=== PATIENT | female | born 1935 ===

== ENCOUNTER 2018-12-12 09:32 | Inpatient (IN) | payer OTHER ==
[2018-12-12 09:41] VITALS: BMI 27.9
[2018-12-12 11:09] LABS: BASO % 0.6 % (0.0-2.0); EOS # 0.2 K/uL (0.0-0.7); HEMOGLOBIN 7.4 g/dL (12.0-16.0); LYMPH # 1.2 K/uL (1.0-4.3); MEAN CELL VOLUME 61.4 fl (81.0-99.0); MEAN CORPUSCULAR HEMOGLOBIN 18.9 pg (27.0-31.0); MEAN CORPUSCULAR HGB CONC 30.8 g/dL (33.0-37.0); MEAN PLATELET VOLUME 6.8 fl (7.2-11.7); MONO # 0.5 K/uL (0.0-0.8); MONO % 9.3 % (0.0-10.0); NEUT # 3.4 K/uL (1.8-7.0); NEUT % 64.1 % (50.0-75.0); NRBC % 0.1 % (0.0-0.0); RBC 3.89 Mil/uL (3.80-5.20); RED CELL DISTRIBUTION WIDTH 18.5 % (11.5-14.5); WHITE BLOOD COUNT 5.3 K/uL (4.8-10.8)
[2018-12-12 11:22] LABS: ALBUMIN 3.1 g/dL (3.5-5.0); ALT/SGPT 32 U/L (9-52); AST/SGOT 39 U/L (14-36); BLOOD UREA NITROGEN 9 mg/dl (7-17); CALCIUM 8.1 mg/dL (8.4-10.2); GFR NON-AFRICAN AMERICAN > 60
--- NOTE | 2018-12-12 11:37 | ED PDOC ---
Syncope/Near Syncope/Dizziness Chief Complaint (Provider): Dizziness/Lightheaded History Per: Patient, Family History/Exam Limitations: no limitations Onset/Duration Of Symptoms: Days Current Symptoms Are (Timing): Still Present Additional Complaint(s): 82 year old female with a past medical history of hypertension who is presenting to the ED for evaluation of headaches, dizziness, and weakness worsening over the last 3 days. Daughter states that patient has fallen twice trying to get out of bed but states that she had no injury or loss of consciousness. Patient denies any nausea or vomiting and is not favoring 1 side. She remains alert and baseline oriented. Of note, patient is in Lisinopril but didnt take her medication today. PMD: none provided <Cici Vizcaino - Last Filed: 12/12/18 15:10> <Salinas Kumar III - Last Filed: 12/12/18 15:19> Time Seen by Provider: 12/12/18 10:17 Chief Complaint (Nursing): Dizziness/Lightheaded Past Medical History Reviewed: Historical Data, Nursing Documentation, Vital Signs Vital Signs: Last Vital Signs Temp 97.6 F 12/12/18 09:41 Pulse 70 12/12/18 09:41 Resp 15 12/12/18 09:41 BP 143/79 12/12/18 09:41 Pulse Ox 100 12/12/18 09:41 - Medical History PMH: HTN - Surgical History Other surgeries: Foot surgery - Family History Family History: States: Unknown Family Hx - Social History Current smoker - smoking cessation education provided: No Alcohol: None Drugs: Denies - Immunization History Hx Tetanus Toxoid Vaccination: No Hx Influenza Vaccination: No Hx Pneumococcal Vaccination: No <Cici Vizcaino - Last Filed: 12/12/18 15:10> Vital Signs: Last Vital Signs Temp 97.8 F 12/12/18 12:50 Pulse 63 12/12/18 12:50 Resp 13 12/12/18 12:50 BP 140/70 12/12/18 12:50 Pulse Ox 100 12/12/18 15:10 <Salinas Kumar III - Last Filed: 12/12/18 15:19> - Home Medications Home Medications: Ambulatory Orders Medication Instructions Recorded Lisinopril [Zestril] 20 mg PO DAILY 12/12/18 - Allergies Allergies/Adverse Reactions: Allergies Allergy/AdvReac Type Severity Reaction Status Date / Time No Known Allergies Allergy Verified 12/12/18 10:30 Review of Systems ROS Statement: Except As Marked, All Systems Reviewed And Found Negative Constitutional: Positive for: Other Gastrointestinal: Negative for: Nausea, Vomiting Neurological: Positive for: Weakness, Headache, Dizziness. Negative for: Other (LOC) <Cici Vizcaino - Last Filed: 12/12/18 15:10> Physical Exam - Reviewed Nursing Documentation Reviewed: Yes Vital Signs Reviewed: Yes - Physical Exam Appears: Positive for: Non-toxic, No Acute Distress Head Exam: Positive for: ATRAUMATIC, NORMAL INSPECTION, NORMOCEPHALIC Skin: Positive for: Normal Color, Warm, DRY Eye Exam: Positive for: EOMI, Normal appearance, PERRL Neck: Positive for: Normal, Painless ROM, Supple Cardiovascular/Chest: Positive for: Regular Rate, Rhythm. Negative for: Murmur Respiratory: Positive for: Normal Breath Sounds. Negative for: Respiratory Distress Gastrointestinal/Abdominal: Positive for: Normal Exam, Soft. Negative for: Tenderness Extremity: Positive for: Normal ROM. Negative for: Deformity, Swelling Neurological/Psych: Positive for: Awake, Alert, Normal Tone, Oriented (Oriented to day and month, but thinks its 2018. She knows her own date of ). Negative for: Motor/Sensory Deficits <Cici Vizcaino - Last Filed: 12/12/18 15:10> - Laboratory Results Result Diagrams: 12/12/18 11:03 12/12/18 11:03 Lab Results: Total Bilirubin 0.5 mg/dl (0.2-1.3) 12/12/18 11:03 AST 39 U/L (14-36) H 12/12/18 11:03 ALT 32 U/L (9-52) 12/12/18 11:03 Alkaline Phosphatase 103 U/L (38-126) 12/12/18 11:03 Total Protein 6.2 G/DL (6.3-8.2) L 12/12/18 11:03 Albumin 3.1 g/dL (3.5-5.0) L 12/12/18 11:03 Globulin 3.0 gm/dL (2.2-3.9) 12/12/18 11:03 Albumin/Globulin Ratio 1.0 (1.0-2.1) 12/12/18 11:03 - ECG O2 Sat by Pulse Oximetry: 100 (RA) Pulse Ox Interpretation: Normal <CarrilloCici J - Last Filed: 12/12/18 15:10> - Laboratory Results Result Diagrams: 12/12/18 11:03 12/12/18 11:03 Lab Results: Troponin I < 0.0120 ng/mL (0.00-0.120) 12/12/18 11:03 Total Bilirubin 0.5 mg/dl (0.2-1.3) 12/12/18 11:03 AST 39 U/L (14-36) H 12/12/18 11:03 ALT 32 U/L (9-52) 12/12/18 11:03 Alkaline Phosphatase 103 U/L (38-126) 12/12/18 11:03 Total Protein 6.2 G/DL (6.3-8.2) L 12/12/18 11:03 Albumin 3.1 g/dL (3.5-5.0) L 12/12/18 11:03 Globulin 3.0 gm/dL (2.2-3.9) 12/12/18 11:03 Albumin/Globulin Ratio 1.0 (1.0-2.1) 12/12/18 11:03 Urine Color Yellow (YELLOW) 12/12/18 11:11 Urine Clarity Slighty-cloudy (Clear) 12/12/18 11:11 Urine pH 7.0 (5.0-8.0) 12/12/18 11:11 Ur Specific [place] 1.013 (1.003-1.030) 12/12/18 11:11 Urine Protein Negative mg/dL (NEGATIVE) 12/12/18 11:11 Urine Glucose (UA) Neg mg/dL (NEGATIVE) 12/12/18 11:11 Urine Ketones Negative mg/dL (NEGATIVE) 12/12/18 11:11 Urine Blood Negative (NEGATIVE) 12/12/18 11:11 Urine Nitrate Negative (NEGATIVE) 12/12/18 11:11 Urine Bilirubin Negative (NEGATIVE) 12/12/18 11:11 Urine Urobilinogen 4.0 mg/dL (0.2-1.0) H 12/12/18 11:11 Ur Leukocyte Esterase Neg [place]/uL (Negative) 12/12/18 11:11 Urine Microscopic WBC 1 /hpf (0-5) 12/12/18 11:11 Ur Squamous Epith Cells 1 /hpf (0-5) 12/12/18 11:11 Amorphous Sediment Occ /ul (<OCC) H 12/12/18 11:11 <Salinas Kumar III - Last Filed: 12/12/18 15:19> Medical Decision Making Medical Decision Making: Time: 11:00 A/P: workup for worsening dizziness and headache --Labs including cardiac workup --CT Head --Reassess patient CT Head: FINDINGS: HEMORRHAGE: No gross intracranial hemorrhage seen. 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 There is ipsilateral sulcal effacement consistent with some mass effect.. No gross midline shift is appreciated at this time. Continued close surveillance is advised. Prior to completing this dictation, these findings were called in directly with the ER physician Dr. Vizcaino VENTRICLES: Unremarkable. No hydrocephalus. CALVARIUM: Unremarkable. PARANASAL SINUSES: Extensive ethmoidal sinus inflammatory changes are present. Concomitant maxillary sinus mucosal inflammatory changes are present these are more apparent on the left maxillary sinus probably due in part to the greater inclusion left maxillary sinuses. MASTOID AIR CELLS: Unremarkable as visualized. No inflammatory changes. Atherosclerotic vascular calcifications of the internal carotid arteries are noted. OTHER FINDINGS: IMPRESSION: Large right wedge-shaped hypodensity concerning for an acute subacute right middle cerebral artery vascular territory infarct no gross right middle cerebral artery hyperdense thrombus is appreciate on this exam. There is ipsilateral mass effect given the ipsilateral sulcal effacement. At this time no gross midline shift is appreciated-however close continued follow-up in this regard is needed. Consider MRI of the brain MRA of the brain for further evaluation As mentioned above, prior to completing this dictation these findings were called and directly with the ER physician Dr. Vizcaino. 14:[address] Velazquez who will see patient. He recommends 81 of aspirin and 300 of Plavix. Patient just returned from MRI/MRA with official read pending. She will be admitted under hospitalist, awaiting return call from Dr. Shah. 14:55 Provider explained to patient in-depth with spanish medical interpreter risk of leaving, including continued brain bleed, impaired brain function and . She states "we are all going to ." Despite daughter pleading with her to stay she still wants to leave. Attempting to contact Dr. Boland to asses mental capabilities of patient. 15:[address] Boland who states she will discuses case with Dr. Rodriges and one of the doctors will come see patient urgently. Patient pending evaluation to sign out AMA vs admission. Scribe Attestation: Documented by Bridget Arce, acting as a scribe for Cici Vizcaino MD. Provider Scribe Attestation: All medical record entries made by the Scribe were at my direction and personally dictated by me. I have reviewed the chart and agree that the record accurately reflects my personal performance of the history, physical exam, medi aldo decision making, and the department course for this patient. I have also personally directed, reviewed, and agree with the discharge instructions and disposition. <Cici Vizcaino - Last Filed: 12/12/18 15:10> Medical Decision Making: psychiatry attending Dr Boland saw patient, patient cannot retain information and partially oriented, does not have capacity to sign AMA. Hospitalist aware. <Salinas Kumar III - Last Filed: 12/12/18 15:19>
[2018-12-12 11:47] LABS: SQUAMOUS EPITHIAL 1 /hpf (0-5); URINE AMORPHOUS SEDIMENT OCC /ul (<OCC); URINE BILIRUBIN NEGATIVE (NEGATIVE); URINE BLOOD NEGATIVE (NEGATIVE); URINE CLARITY SLIGHTY-CLOUDY (Clear); URINE COLOR YELLOW (YELLOW); URINE GLUCOSE (UA) NEG (NEGATIVE); URINE LEUKOCYTE ESTERASE NEG Leu/uL (Negative); URINE PROTEIN NEGATIVE (NEGATIVE)
--- NOTE | 2018-12-12 11:51 | CT ---
Date of service: 12/12/2018 PROCEDURE: CT HEAD WITHOUT CONTRAST. HISTORY: dizziness COMPARISON: None available. TECHNIQUE: Axial computed tomography images were obtained through the head/brain without intravenous contrast. Radiation dose: Total exam DLP = 701.95 mGy-cm. This CT exam was performed using one or more of the following dose reduction techniques: Automated exposure control, adjustment of the mA and/or kV according to patient size, and/or use of iterative reconstruction technique. FINDINGS: HEMORRHAGE: No gross intracranial hemorrhage seen. 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 There is ipsilateral sulcal effacement consistent with some mass effect.. No gross midline shift is appreciated at this time. Continued close surveillance is advised. Prior to completing this dictation, these findings were called in directly with the ER physician Dr. Vizcaino VENTRICLES: Unremarkable. No hydrocephalus. CALVARIUM: Unremarkable. PARANASAL SINUSES: Extensive ethmoidal sinus inflammatory changes are present. Concomitant maxillary sinus mucosal inflammatory changes are present these are more apparent on the left maxillary sinus probably due in part to the greater inclusion left maxillary sinuses. MASTOID AIR CELLS: Unremarkable as visualized. No inflammatory changes. Atherosclerotic vascular calcifications of the internal carotid arteries are noted. OTHER FINDINGS: IMPRESSION: Large right wedge-shaped hypodensity concerning for an acute subacute right middle cerebral artery vascular territory infarct no gross right middle cerebral artery hyperdense thrombus is appreciate on this exam. There is ipsilateral mass effect given the ipsilateral sulcal effacement. At this time no gross midline shift is appreciated-however close continued follow-up in this regard is needed. Consider MRI of the brain MRA of the brain for further evaluation As mentioned above, prior to completing this dictation these findings were called and directly with the ER physician Dr. Vizcaino.
--- NOTE | 2018-12-12 13:22 | RAD ---
Date of service: 12/12/2018 HISTORY: possible admission COMPARISON: No prior. TECHNIQUE: 1 view obtained. FINDINGS: LUNGS: Lung volumes borderline shallow No consolidation. Possible granuloma (versus bone island projecting over left mid lung zone. Approximately 4 to 5 mm in size. Chronicity unknown PLEURA: Pneumothorax. Probable small left pleural effusion. CARDIOVASCULAR: No aortic atherosclerotic calcification present. Mild cardiomegaly Minimal pulmonary venous congestion probable OSSEOUS STRUCTURES: No fracture or lytic lesion. Calcified granuloma or bone island or high-density lymph node projecting over the right thoracic inlet in posterior right 1st and 2nd ribs. VISUALIZED UPPER ABDOMEN: Normal. OTHER FINDINGS: None. IMPRESSION: Cardiomegaly probable trace left pleural effusion. Minimal pulmonary venous congestion probable No consolidations seen. Other findings as above.
[2018-12-12] MEDS ORDERED: Gadodiamide 287 MG/ML VIAL (15ML) IV ONE (13:36)
--- NOTE | 2018-12-12 14:52 | MRI ---
Date of service: 12/12/2018 PROCEDURE: MRI BRAIN WITH AND WITHOUT CONTRAST HISTORY: subacute infarct COMPARISON: CT head without contrast from 12/12/2018. TECHNIQUE: Multiplanar, multisequence MR images of the brain were obtained with and without intravenous contrast enhancement. 11 cc Omniscan was injected intravenously. FINDINGS: HEMORRHAGE: None DWI: There is a triangular wedge-shaped area of restricted diffusion in the right posterior parietal lobe. There is also a small focus of restricted diffusion in the right posterior parietal lobe. BRAIN PARENCHYMA: There are mild chronic microangiopathic changes. There is a chronic infarction in the right occipital lobe. There is no mass, mass effect or abnormal extra-axial fluid collection. The midline sagittal structures are normal. There is an empty sella. ENHANCEMENT: No abnormal intracranial enhancement. VENTRICLES: There is mild age-related global parenchymal volume loss and proportionate enlargement of the ventricles and cortical sulci. CRANIUM: There are normal signal voids in the larger intracranial arteries. ORBITS: Grossly unremarkable. PARANASAL SINUSES/MASTOIDS: There is moderate mucosal thickening in the paranasal sinuses and small mastoid effusions VASCULAR SYSTEM: There are normal signal voids in the larger intracranial arteries. OTHER FINDINGS: None . IMPRESSION: 1. Late acute/early subacute right MCA involving the right posterior parietal lobe. Additional small focus of acute infarction in the right posterior parietal lobe. 2. Mild chronic microangiopathic changes and mild age-related global parenchymal volume loss. 3. 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 4. Chronic pansinusitis.
--- NOTE | 2018-12-12 15:28 | CP.PCM.HP ---
<Jerman Giron - Last Filed: 12/12/18 16:49> History of Present Illness - History of Present Illness History of Present Illness: 82 year old female with a past medical history of hypertension presented to ED due to headache and dizziness that started 3 days ago. due to persistent symptom daughter brought her to hospital. As per [facility] patient fall twice already but no injury or LOC. Patient denies any symptoms as per now. PCP None Allergy None Medication: none PFH none PSH None Social denies smoke drink or drug use. ED course VItal 97.6temp , 143/79Bp 70Hr 100ox CBC/CMP wnl UA + for bacteria MRI Large right wedge-shaped hypodensity concerning for an acute subacute right middle cerebral artery vascular territory infarct no gross right middle cerebral artery hyperdense thrombus is appreciate on this exam. There is ipsilateral mass effect given the ipsilateral sulcal effacement. At this time no gross midline shift is appreciated-however close continued follow-up in this regard is needed. Consider MRI of the brain MRA of the brain for further evaluation Patient refusing all medication During interview patient is combative and want to be discharged home, she report God will cure her and she is refusing all medication. Psych was consulted and state patient is not compitent to make own discion. Patient will be admitted for treatment and management of CVA Present on Admission - Present on Admission Any Indicators Present on Admission: No Review of Systems - Review of Systems All systems: reviewed and no additional remarkable complaints except Past Patient History - Past Social History Alcohol: None Drugs: Denies - CARDIAC Hx Hypertension: Yes - PSYCHIATRIC Hx Substance Use: No - SURGICAL HISTORY Hx Surgeries: No Other/Comment: Foot surgery - ANESTHESIA Hx Anesthesia: Yes Hx Anesthesia Reactions: No Hx Malignant Hyperthermia: No Meds Allergies/Adverse Reactions: Allergies Allergy/AdvReac Type Severity Reaction Status Date / Time No Known Allergies Allergy Verified 12/12/18 10:30 Physical Exam - Constitutional Appears: Well, Non-toxic, No Acute Distress - Head Exam Head Exam: ATRAUMATIC, NORMAL INSPECTION, NORMOCEPHALIC - Eye Exam Eye Exam: EOMI, Normal appearance, PERRL Pupil Exam: NORMAL ACCOMODATION, PERRL - Respiratory Exam Respiratory Exam: Clear to Auscultation Bilateral, NORMAL BREATHING PATTERN - Cardiovascular Exam Cardiovascular Exam: REGULAR RHYTHM, +S1, +S2 - GI/Abdominal Exam GI & Abdominal Exam: Normal Bowel Sounds, Soft - Back Exam Back exam: NORMAL INSPECTION Additional comments: normal gate - Neurological Exam Neurological exam: Alert Additional comments: normal gaite, no weakness, no loss of sensation bl in all extremities - Skin Skin Exam: Dry, Intact, Normal Color, Warm Results - Vital Signs Recent Vital Signs: Last Vital Signs Temp 97.8 F 12/12/18 12:50 Pulse 63 12/12/18 12:50 Resp 13 12/12/18 12:50 BP 140/70 12/12/18 12:50 Pulse Ox 100 12/12/18 15:10 - Labs Result Diagrams: 12/12/18 11:03 12/12/18 11:03 Labs: Laboratory Results - last 24 hr 12/12/18 12/12/18 12/12/18 10:19 11:03 11:03 WBC 5.3 RBC 3.89 Hgb 7.4 L Hct 23.8 L MCV 61.4 L MCH 18.9 L MCHC 30.8 L RDW 18.5 H Plt Count 350 MPV 6.8 L Neut % (Auto) 64.1 Lymph % (Auto) 23.0 [place] % (Auto) 9.3 Eos % (Auto) 3.0 Baso % (Auto) 0.6 Neut # (Auto) 3.4 Lymph # (Auto) 1.2 [place] # (Auto) 0.5 Eos # (Auto) 0.2 Baso # (Auto) 0.0 Sodium 135 Potassium 3.9 Chloride 105 Carbon Dioxide 22 Anion Gap 12 BUN 9 Creatinine 0.5 L Est GFR ( Amer) > 60 Est GFR (Non-Af Amer) > 60 POC Glucose (mg/dL) 90 Random Glucose 89 Calcium 8.1 L Total Bilirubin 0.5 AST 39 H ALT 32 Alkaline Phosphatase 103 Troponin I < 0.0120 Total Protein 6.2 L Albumin 3.1 L Globulin 3.0 Albumin/Globulin Ratio 1.0 Urine Color Urine Clarity Urine pH Ur Specific [place] Urine Protein Urine Glucose (UA) Urine Ketones Urine Blood Urine Nitrate Urine Bilirubin Urine Urobilinogen Ur Leukocyte Esterase Urine Microscopic WBC Ur Squamous Epith Cells Amorphous Sediment 12/12/18 11:11 WBC RBC Hgb Hct MCV MCH MCHC RDW Plt Count MPV Neut % (Auto) Lymph % (Auto) [place] % (Auto) Eos % (Auto) Baso % (Auto) Neut # (Auto) Lymph # (Auto) [place] # (Auto) Eos # (Auto) Baso # (Auto) Sodium Potassium Chloride Carbon Dioxide Anion Gap BUN Creatinine Est GFR ( Amer) Est GFR (Non-Af Amer) POC Glucose (mg/dL) Random Glucose Calcium Total Bilirubin AST ALT Alkaline Phosphatase Troponin I Total Protein Albumin Globulin Albumin/Globulin Ratio Urine Color Yellow Urine Clarity Slighty-cloudy Urine pH 7.0 Ur Specific [place] 1.013 Urine Protein Negative Urine Glucose (UA) Neg Urine Ketones Negative Urine Blood Negative Urine Nitrate Negative Urine Bilirubin Negative Urine Urobilinogen 4.0 H Ur Leukocyte Esterase Neg Urine Microscopic WBC 1 Ur Squamous Epith Cells 1 Amorphous Sediment Occ H Assessment & Plan - Assessment and Plan (Free Text) Assessment: 82 year old female with a past medical history of hypertension presented to ED due to headache and dizziness that started 3 days ago. 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 There is ipsilateral mass effect given the ipsilateral sulcal effacement. At this time no gross midline shift is appreciated-however close continued follow-up in this regard is needed. Consider MRI of the brain MRA of the brain for further evaluation. 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 Patient refusing treatment Will give ativan 0.5 to be able to start her on treatment Plavix 300mg now Plavix 75mg tomorrow Aspirin 81mg po daily Lisinopril 20mg pantoprazole 40mg acetaminophen Oxygen follow up for exacerbation Neuro consult Psych consult F/u BMP F/U lipid panel F/U TSH Anemia H/H 7.4/23.8 Type and screen Cross and match F/U reticuloctye Diet Heart healthy diet DVT prophylaxis SCD FULL CODE <Manuel Shah D - Last Filed: 12/12/18 17:22> Results - Vital Signs Recent Vital Signs: Last Vital Signs Temp 97.8 F 12/12/18 12:50 Pulse 63 12/12/18 12:50 Resp 13 12/12/18 12:50 BP 140/70 12/12/18 12:50 Pulse Ox 100 12/12/18 15:10 - Labs Result Diagrams: 12/12/18 11:03 12/12/18 11:03 Labs: Laboratory Results - last 24 hr 12/12/18 12/12/18 12/12/18 10:19 11:03 11:03 WBC 5.3 RBC 3.89 Hgb 7.4 L Hct 23.8 L MCV 61.4 L MCH 18.9 L MCHC 30.8 L RDW 18.5 H Plt Count 350 MPV 6.8 L Neut % (Auto) 64.1 Lymph % (Auto) 23.0 [place] % (Auto) 9.3 Eos % (Auto) 3.0 Baso % (Auto) 0.6 Neut # (Auto) 3.4 Lymph # (Auto) 1.2 [place] # (Auto) 0.5 Eos # (Auto) 0.2 Baso # (Auto) 0.0 Sodium 135 Potassium 3.9 Chloride 105 Carbon Dioxide 22 Anion Gap 12 BUN 9 Creatinine 0.5 L Est GFR ( Amer) > 60 Est GFR (Non-Af Amer) > 60 POC Glucose (mg/dL) 90 Random Glucose 89 Calcium 8.1 L Total Bilirubin 0.5 AST 39 H ALT 32 Alkaline Phosphatase 103 Troponin I < 0.0120 Total Protein 6.2 L Albumin 3.1 L Globulin 3.0 Albumin/Globulin Ratio 1.0 Urine Color Urine Clarity Urine pH Ur Specific [place] Urine Protein Urine Glucose (UA) Urine Ketones Urine Blood Urine Nitrate Urine Bilirubin Urine Urobilinogen Ur Leukocyte Esterase Urine Microscopic WBC Ur Squamous Epith Cells Amorphous Sediment 12/12/18 11:11 WBC RBC Hgb Hct MCV MCH MCHC RDW Plt Count MPV Neut % (Auto) Lymph % (Auto) [place] % (Auto) Eos % (Auto) Baso % (Auto) Neut # (Auto) Lymph # (Auto) [place] # (Auto) Eos # (Auto) Baso # (Auto) Sodium Potassium Chloride Carbon Dioxide Anion Gap BUN Creatinine Est GFR ( Amer) Est GFR (Non-Af Amer) POC Glucose (mg/dL) Random Glucose Calcium Total Bilirubin AST ALT Alkaline Phosphatase Troponin I Total Protein Albumin Globulin Albumin/Globulin Ratio Urine Color Yellow Urine Clarity Slighty-cloudy Urine pH 7.0 Ur Specific [place] 1.013 Urine Protein Negative Urine Glucose (UA) Neg Urine Ketones Negative Urine Blood Negative Urine Nitrate Negative Urine Bilirubin Negative Urine Urobilinogen 4.0 H Ur Leukocyte Esterase Neg Urine Microscopic WBC 1 Ur Squamous Epith Cells 1 Amorphous Sediment Occ H Attending/Attestation - Attestation I have personally seen and examined this patient.: Yes I have fully participated in the care of the patient.: Yes I have reviewed all pertinent clinical information: Yes Notes (Text): 12/12/18 17:21 Patient seen and examined with resident. Case discussed and agreed with assessment and plan of management.
--- NOTE | 2018-12-12 15:37 | CP.PCM.CON ---
History of Present Illness - History of Present Illness History of Present Illness: consult requested for capacity to make decision 82 year old female with a past medical history of hypertension who is presenting to the ED for evaluation of headaches, dizziness, and weakness worsening over the last 3 days. as per daughter who is by bed side , pt has no previous psychiatric history or treatment and this is the first time for her to have an episode like that / mening act differently and to appear confused pt since last monday after coming from [facility] has been acting differently, she has been irritable, agitated, with poor sleep, dressing up differently , acting out of character and her speech is not goal directed on evaluation pt reported that on monday while in [facility] she felt different and had some shakes and since then has not been feeling well,but she reports now she is fine and wants to go home pt on evaluation oriented to person, partially to place stating she is in hospital, when asked about address stated [place] stated month is october or november and season is winter when asked why her daughter brought her to hospital she was not able to explain , stated she has high blood pressure when asked if she understands why physicians need to keep her in hospital she was not able to give an answer , explained to pt risks of leaving and benefits of receiving treatment and medical work up but she was unable to retain and repeat the information Past Patient History - Past Social History Alcohol: None Drugs: Denies - CARDIAC Hx Hypertension: Yes - PSYCHIATRIC Hx Substance Use: No - SURGICAL HISTORY Hx Surgeries: No Other/Comment: Foot surgery - ANESTHESIA Hx Anesthesia: Yes Hx Anesthesia Reactions: No Hx Malignant Hyperthermia: No Meds Allergies/Adverse Reactions: Allergies Allergy/AdvReac Type Severity Reaction Status Date / Time No Known Allergies Allergy Verified 12/12/18 10:30 Results - Vital Signs Recent Vital Signs: Last Vital Signs Temp 97.8 F 12/12/18 12:50 Pulse 63 12/12/18 12:50 Resp 13 12/12/18 12:50 BP 140/70 12/12/18 12:50 Pulse Ox 100 12/12/18 15:10 - Labs Result Diagrams: 12/12/18 11:03 12/12/18 11:03 Labs: Laboratory Results - last 24 hr 12/12/18 12/12/18 12/12/18 10:19 11:03 11:03 WBC 5.3 RBC 3.89 Hgb 7.4 L Hct 23.8 L MCV 61.4 L MCH 18.9 L MCHC 30.8 L RDW 18.5 H Plt Count 350 MPV 6.8 L Neut % (Auto) 64.1 Lymph % (Auto) 23.0 [place] % (Auto) 9.3 Eos % (Auto) 3.0 Baso % (Auto) 0.6 Neut # (Auto) 3.4 Lymph # (Auto) 1.2 [place] # (Auto) 0.5 Eos # (Auto) 0.2 Baso # (Auto) 0.0 Sodium 135 Potassium 3.9 Chloride 105 Carbon Dioxide 22 Anion Gap 12 BUN 9 Creatinine 0.5 L Est GFR ( Amer) > 60 Est GFR (Non-Af Amer) > 60 POC Glucose (mg/dL) 90 Random Glucose 89 Calcium 8.1 L Total Bilirubin 0.5 AST 39 H ALT 32 Alkaline Phosphatase 103 Troponin I < 0.0120 Total Protein 6.2 L Albumin 3.1 L Globulin 3.0 Albumin/Globulin Ratio 1.0 Urine Color Urine Clarity Urine pH Ur Specific [place] Urine Protein Urine Glucose (UA) Urine Ketones Urine Blood Urine Nitrate Urine Bilirubin Urine Urobilinogen Ur Leukocyte Esterase Urine Microscopic WBC Ur Squamous Epith Cells Amorphous Sediment 12/12/18 11:11 WBC RBC Hgb Hct MCV MCH MCHC RDW Plt Count MPV Neut % (Auto) Lymph % (Auto) [place] % (Auto) Eos % (Auto) Baso % (Auto) Neut # (Auto) Lymph # (Auto) [place] # (Auto) Eos # (Auto) Baso # (Auto) Sodium Potassium Chloride Carbon Dioxide Anion Gap BUN Creatinine Est GFR ( Amer) Est GFR (Non-Af Amer) POC Glucose (mg/dL) Random Glucose Calcium Total Bilirubin AST ALT Alkaline Phosphatase Troponin I Total Protein Albumin Globulin Albumin/Globulin Ratio Urine Color Yellow Urine Clarity Slighty-cloudy Urine pH 7.0 Ur Specific [place] 1.013 Urine Protein Negative Urine Glucose (UA) Neg Urine Ketones Negative Urine Blood Negative Urine Nitrate Negative Urine Bilirubin Negative Urine Urobilinogen 4.0 H Ur Leukocyte Esterase Neg Urine Microscopic WBC 1 Ur Squamous Epith Cells 1 Amorphous Sediment Occ H Assessment & Plan - Assessment and Plan (Free Text) Assessment: rule out delirium rule out mild neurocognitive disorder Plan: pt at current mental status does not have the capacity to make decision in reference to her medical treatment
[2018-12-12] MEDS: Pantoprazole 40 mg EC Tab PO SCH (20:41)
--- NOTE | 2018-12-13 06:48 | CP.PCM.PN ---
<Jerman Giron - Last Filed: 12/13/18 14:03> Subjective - Date & Time of Evaluation Date of Evaluation: 12/13/18 Time of Evaluation: 07:00 - Subjective Subjective: Patient seen and examined at bedside. No acute event overnight. Patient needed a 1 unit of blood transfusion due to low H/H. Patient is persisting on leaving [facility], otherwise she denies headache, dizziness, headache, chest pain, sob, abdominal pain, diarrhea, constipation, or any other symptoms. Objective - Vital Signs/Intake and Output Vital Signs (last 24 hours): Temp Pulse Resp BP Pulse Ox 97.8 F 64 18 138/78 99 12/13/18 04:44 12/13/18 04:44 12/13/18 04:44 12/13/18 04:44 12/13/18 04:44 Intake and Output: 12/12/18 12/13/18 18:59 06:59 Intake Total 325 Balance 325 - Medications Medications: Current Medications Aspirin (Aspirin Chewable) 81 mg PO DAILY [facility] Clopidogrel Bisulfate (Plavix) 75 mg PO DAILY [facility] Docusate Sodium (Colace) 100 mg PO BID PRN PRN Reason: Constipation Lisinopril (Zestril) 20 mg PO DAILY [facility] Lorazepam (Ativan) 0.5 mg IVP Q4 PRN PRN Reason: Agitation Last Admin: 12/12/18 18:25 Dose: 0.5 mg Pantoprazole Sodium (Protonix Ec Tab) 40 mg PO DAILY [facility] Last Admin: 12/12/18 20:41 Dose: 40 mg - Labs Labs: 12/12/18 11:03 12/12/18 11:03 Assessment and Plan - Assessment and Plan (Free Text) Assessment: Assessment: 82 year old female with a past medical history of hypertension presented to ED due to headache and dizziness that started 3 days ago. Admitted for CVA attack. 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 There is ipsilateral mass effect given the ipsilateral sulcal effacement. At this time no gross midline shift is appreciated-however close continued follow-up in this regard is needed. Consider MRI of the brain MRA of the brain for further evaluation. 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 ativan 0.5 PRN agitation S/p plavix 300mg Plavix 75mg Aspirin 81mg po daily Lisinopril 20mg pantoprazole 40mg acetaminophen Oxygen follow up for exacerbation F/u Neuro consult Psych consulted, on case Trop negative F/u TSH F/u lipid F/U CT scan F/U echo PT on case Anemia H/H 7.4/23.8 S/P 1 unit transfusion 9.4/31.0 follow up occult blood DVT prophylaxis SCD <Manuel Shah D - Last Filed: 12/13/18 14:31> Objective - Vital Signs/Intake and Output Vital Signs (last 24 hours): Temp Pulse Resp BP Pulse Ox 97.7 F 69 18 148/77 95 12/13/18 12:01 12/13/18 12:01 12/13/18 12:01 12/13/18 12:01 12/13/18 12:01 Intake and Output: 12/13/18 12/13/18 06:59 18:59 Intake Total 325 Balance 325 - Medications Medications: Current Medications Aspirin (Aspirin Chewable) 81 mg PO DAILY [facility] Last Admin: 12/13/18 08:41 Dose: 81 mg Atorvastatin Calcium (Lipitor) 40 mg PO DAILY [facility] Clopidogrel Bisulfate (Plavix) 75 mg PO DAILY [facility] Last Admin: 12/13/18 08:40 Dose: 75 mg Docusate Sodium (Colace) 100 mg PO BID PRN PRN Reason: Constipation Lisinopril (Zestril) 20 mg PO DAILY [facility] Last Admin: 12/13/18 08:41 Dose: 20 mg Lorazepam (Ativan) 0.5 mg IVP Q4 PRN PRN Reason: Agitation Last Admin: 12/12/18 18:25 Dose: 0.5 mg Pantoprazole Sodium (Protonix Ec Tab) 40 mg PO DAILY [facility] Last Admin: 12/13/18 08:41 Dose: 40 mg - Labs Labs: 12/13/18 11:50 12/12/18 11:03 Attending/Attestation - Attestation I have personally seen and examined this patient.: Yes I have fully participated in the care of the patient.: Yes I have reviewed all pertinent clinical information, including history, physical exam and plan: Yes Notes (Text): 12/13/18 14:30 Patient seen and examined with resident. Case discussed and agreed with assessment and plan.
[2018-12-13] MEDS: Pantoprazole 40 mg EC Tab PO SCH (08:41)
[2018-12-13 12:02] LABS: MEAN CORPUSCULAR HEMOGLOBIN 19.8 pg (27.0-31.0); MEAN CORPUSCULAR HGB CONC 30.5 g/dL (33.0-37.0); RBC 4.76 Mil/uL (3.80-5.20); RED CELL DISTRIBUTION WIDTH 21.7 % (11.5-14.5); WHITE BLOOD COUNT 6.8 K/uL (4.8-10.8)
[2018-12-13 12:20] LABS: HEMOGLOBIN 9.4 g/dL (12.0-16.0)
[2018-12-13] MEDS ORDERED: Iodixanol 320 MG/ML 100 ML BOTTLE IV ONE (12:42)
[2018-12-13] MEDS ORDERED: Sodium Chloride 0.9% 50 ML IV ONE (12:43)
--- NOTE | 2018-12-13 14:54 | CT ---
Date of service: 12/13/2018 PROCEDURE: CT Angiography of the Brain and Neck. HISTORY: stroke COMPARISON: Brain MRI without and with contrast as well as unenhanced head CT, both studies performed 12/12/2018 TECHNIQUE: CT angiography of the head and neck was performed following intravenous contrast administration. Coronal and sagittal maximum intensity projection reformatted images were generated. Contrast Dose: Visipaque 320, 95 cc Radiation dose: Total exam DLP = 424.03 mGy-cm. This CT exam was performed using one or more of the following dose reduction techniques: Automated exposure control, adjustment of the mA and/or kV according to patient size, and/or use of iterative reconstruction technique. FINDINGS: INTERNAL CEREBRAL ARTERIES: Note is made of partially calcified atherosclerosis of the bilateral cavernous internal carotid artery segments without significant stenosis. The skull base, petrous, and supraclinoid segments are bilaterally widely patent. ANTERIOR CEREBRAL ARTERIES: The right A1 TONNY appears hypoplastic with the left A1 TONNY widely patent as well as bilateral A2 segments. Smaller distal branches unremarkable, as visualized. MIDDLE CEREBRAL ARTERIES: Unremarkable. M1 and M2 segments are widely patent. Perisylvian branches grossly symmetric. POSTERIOR CIRCULATION: Basilar Artery: Unremarkable. Distal Vertebral Arteries: Right dominant vertebrobasilar circulation. Wsll-fb-ezhmwgei hypoplasia distal right vertebral artery at the intracranial segment. Posterior Cerebral Arteries: Unremarkable. Posterior Inferior Cerebellar Arteries: Unremarkable. NECK CTA: Aortic Arch: Normal three vessel arch identified. Common Carotid arteries: The bilateral common carotid appear widely patent from their origins to their bifurcations with no significant stenosis appreciated. No evidence to suggest common carotid artery dissection. Limited left carotid bulbar atherosclerotic plaque identified with none identified at the right. Internal Carotid arteries: No significant stenosis is appreciated throughout the cervical internal carotid artery segments bilaterally and there is no evidence of dissection either. External Carotid arteries: Appear unremarkable bilaterally. Vertebral arteries: Mildly hypoplastic right vertebral artery in the neck with no significant stenosis appreciable throughout. Unremarkable left vertebral artery in the neck. No significant stenosis or definite pattern of dissection. ANEURYSM/ VASCULAR MALFORMATIONS: None. OTHER FINDINGS: Left thyroid lobe nodule 1.6 x 1.9 cm or possible cyst. Complex nodule right thyroid lobe 1.1 x 1.0 cm. Follow-up thyroid ultrasound recommended for added characterization if not already evaluated. IMPRESSION: 1. No definite occlusion or significant stenosis identified throughout CT angiography of the head and neck as discussed above. 2. Hypoplastic right A1 TONNY with widely patent left A1 and bilateral A2 TONNY segments as well as more distal branches. 3. No definitive significant comparative arterial enhancement pattern at the right temporal parietal distribution. No definite large vessel occlusion. 4. Bilateral thyroid lesions as discussed above for which follow-up thyroid ultrasound is advised for added characterization. Please see discussion in "other findings" section above.
[2018-12-13 16:21] LABS: BLOOD UREA NITROGEN 9 mg/dl (7-17); CALCIUM 8.5 mg/dL (8.4-10.2); GFR NON-AFRICAN AMERICAN > 60; HDL CHOLESTEROL 22 MG/DL (30-70)
[2018-12-13 16:32] LABS: LDL CHOLESTEROL 93 mg/dL (0-129)
--- NOTE | 2018-12-13 20:19 | CARD ---
APPROVED REPORT Date of service: 12/13/2018 EXAM: Two-dimensional and M-mode echocardiogram with Doppler and color Doppler. Other Information Quality : GoodRhythm : NSR INDICATION CVA/TIA 2D DIMENSIONS IVSd1.15 (0.7-1.1cm)LVDd3.92 (3.9-5.9cm) LVOT Diameter1.76 (1.8-2.4cm)PWd1.22 (0.7-1.1cm) IVSs1.56 (0.8-1.2cm)LVDs2.26 (2.5-4.0cm) FS (%) 42.3 %PWs1.33 (0.8-1.2cm) M-Mode DIMENSIONS Left Atrium (MM)7.41 (2.5-4.0cm)IVSd0.97 (0.7-1.1cm) Aortic Root2.81 (2.2-3.7cm)LVDd6.13 (4.0-5.6cm) Aortic Cusp Exc.1.34 (1.5-2.0cm)PWd1.31 (0.7-1.1cm) IVSs1.91 cmFS (%) 59 % LVDs2.50 (2.0-3.8cm)PWs1.56 cm Aortic Valve AoV Peak Ksdrhvpr180.0cm/sAoV VTI39.5cmAO Peak GR.17mmHg LVOT Peak Yrxauugp626.7cm/sLVOT VTI21.09cmAO Mean GR.9mmHg KAREN (VMAX)0.61ev3BDG (VTI)0.05qn3FD P 1/2 Kqzj683ru Mitral Valve MV E Spdkkeih91.3cm/sMV DECEL YBUQ458nxDF A Tefcxxgh46.2cm/s MV JAY58pgL/A ratio2.0MVA (PHT)5.31cm2 TDI E/Lateral E'0.0E/Medial E'0.0 Tricuspid Valve TR Peak Tspilngm016gf/sRAP CWHMMCCO38ynGkPM Peak Gr.28mmHg AZBA41cwHl LEFT VENTRICLE The left ventricle is normal size. There is borderline to mild concentric left ventricular hypertrophy. The left ventricular systolic function is normal. The estimated ejection fraction is 55-60% No regional wall motion abnormalities noted.. Transmitral Doppler flow pattern is Grade II-pseudonormal filling dynamics. No left ventricle thrombus noted on this study. There is no ventricular septal defect visualized. There is no left ventricular aneurysm. There is no mass noted in the left ventricle. RIGHT VENTRICLE The right ventricle is normal size. There is normal right ventricular wall thickness. The right ventricular systolic function is normal. ATRIA The left atrium is severely dilated. The right atrium size is normal. The interatrial septum is intact with no evidence for an atrial septal defect. AORTIC VALVE The aortic valve is normal in structure. Mild aortic regurgitation is present. There is no aortic valvular stenosis. There is no aortic valvular vegetation. MITRAL VALVE The mitral valve is normal in structure. There is no evidence of mitral valve prolapse. There is no mitral valve stenosis. There is moderate mitral valve regurgitation noted. TRICUSPID VALVE The tricuspid valve is normal in structure. There is mild tricuspid valve regurgitation noted. RVSP is calculated at 33 mm Hg. There is no tricuspid valve prolapse or vegetation. There is no tricuspid valve stenosis. PULMONIC VALVE The pulmonary valve is normal in structure. There is no pulmonic valvular regurgitation. There is no pulmonic valvular stenosis. GREAT VESSELS The aortic root is normal in size. The ascending aorta is normal in size. The pulmonary artery is normal. The IVC is not well visualized. PERICARDIAL EFFUSION There is no pericardial effusion. There is no pleural effusion. <Conclusion> There is borderline to mild concentric left ventricular hypertrophy. The estimated ejection fraction is 55-60% Transmitral Doppler flow pattern is Grade II-pseudonormal filling dynamics. The left atrium is severely dilated. Mild aortic regurgitation is present. There is moderate mitral valve regurgitation noted. There is mild tricuspid valve regurgitation noted. RVSP is calculated at 33 mm Hg.
[2018-12-14 05:49] LABS: HEMOGLOBIN 8.8 g/dL (12.0-16.0); MEAN CELL VOLUME 64.6 fl (81.0-99.0); MEAN CORPUSCULAR HEMOGLOBIN 19.8 pg (27.0-31.0); MEAN CORPUSCULAR HGB CONC 30.7 g/dL (33.0-37.0); RBC 4.42 Mil/uL (3.80-5.20); RED CELL DISTRIBUTION WIDTH 21.3 % (11.5-14.5); WHITE BLOOD COUNT 5.9 K/uL (4.8-10.8)
[2018-12-14 05:52] LABS: ALB/GLOB RATIO 1.1 (1.0-2.1); ALBUMIN 3.1 g/dL (3.5-5.0); ALT/SGPT 33 U/L (9-52); AST/SGOT 45 U/L (14-36); BLOOD UREA NITROGEN 10 mg/dl (7-17); CALCIUM 8.4 mg/dL (8.4-10.2); GFR NON-AFRICAN AMERICAN > 60; HDL CHOLESTEROL 21 MG/DL (30-70)
[2018-12-14 06:03] LABS: LDL CHOLESTEROL 91 mg/dL (0-129)
[2018-12-14 06:23] VITALS: RESP 20
[2018-12-14] MEDS: Pantoprazole 40 mg EC Tab PO SCH (09:00)
[2018-12-14 09:13] VITALS: BP 156/79; PULSE 78
[2018-12-14 09:17] VITALS: TEMP 98.5; O2SAT 97
--- NOTE | 2018-12-14 10:47 | CP.PCM.DIS ---
Provider - Provider Date of Admission: 12/12/18 14:21 Attending physician: Manuel Shah MD Consults: 12/12/18 14:16 Neurology Consult Stat Comment: Consulting Provider: Damien Velazquez Consulting Physician: Damien Velazquez Reason for Consult: dizziness and subacute infarct 12/12/18 14:46 Psychiatry Consult Stat Comment: Consulting Provider: Cinthia Boland Consulting Physician: Cinthia Boland Reason for Consult: refusing admission, elderly, stroke, dementia Time Spent in preparation of Discharge (in minutes): 20 Diagnosis - Discharge Diagnosis (1) CVA (cerebral vascular accident) Status: Acute (2) Hypertension Status: Chronic (3) Anemia Status: Acute Hospital Course - Lab Results Lab Results: Most Recent Lab Values WBC 5.9 K/uL (4.8-10.8) 12/14/18 04:25 RBC 4.42 Mil/uL (3.80-5.20) 12/14/18 04:25 Hgb 8.8 g/dL (12.0-16.0) L 12/14/18 04:25 Hct 28.5 % (34.0-47.0) L 12/14/18 04:25 MCV 64.6 fl (81.0-99.0) L 12/14/18 04:25 MCH 19.8 pg (27.0-31.0) L 12/14/18 04:25 MCHC 30.7 g/dL (33.0-37.0) L 12/14/18 04:25 RDW 21.3 % (11.5-14.5) H 12/14/18 04:25 Plt Count 365 K/uL (130-400) 12/14/18 04:25 MPV 6.8 fl (7.2-11.7) L 12/12/18 11:03 Neut % (Auto) 64.1 % (50.0-75.0) 12/12/18 11:03 Lymph % (Auto) 23.0 % (20.0-40.0) 12/12/18 11:03 [place] % (Auto) 9.3 % (0.0-10.0) 12/12/18 11:03 Eos % (Auto) 3.0 % (0.0-4.0) 12/12/18 11:03 Baso % (Auto) 0.6 % (0.0-2.0) 12/12/18 11:03 Neut # (Auto) 3.4 K/uL (1.8-7.0) 12/12/18 11:03 Lymph # (Auto) 1.2 K/uL (1.0-4.3) 12/12/18 11:03 [place] # (Auto) 0.5 K/uL (0.0-0.8) 12/12/18 11:03 Eos # (Auto) 0.2 K/uL (0.0-0.7) 12/12/18 11:03 Baso # (Auto) 0.0 K/uL (0.0-0.2) 12/12/18 11:03 Retic Count 2.2 % (0.5-1.5) H 12/14/18 04:25 Sodium 135 mmol/l (132-148) 12/14/18 04:25 Potassium 3.7 MMOL/L (3.6-5.0) 12/14/18 04:25 Chloride 103 mmol/L (98-107) 12/14/18 04:25 Carbon Dioxide 25 mmol/L (22-30) 12/14/18 04:25 Anion Gap 11 (10-20) 12/14/18 04:25 BUN 10 mg/dl (7-17) 12/14/18 04:25 Creatinine 0.6 mg/dl (0.7-1.2) L 12/14/18 04:25 Est GFR ( Amer) > 60 12/14/18 04:25 Est GFR (Non-Af Amer) > 60 12/14/18 04:25 POC Glucose (mg/dL) 90 mg/dL (65-110) 12/12/18 10:19 Random Glucose 87 mg/dL (65-105) 12/14/18 04:25 Hemoglobin A1c 5.9 % (4.2-6.5) 12/13/18 15:00 Calcium 8.4 mg/dL (8.4-10.2) 12/14/18 04:25 Total Bilirubin 0.6 mg/dl (0.2-1.3) 12/14/18 04:25 AST 45 U/L (14-36) H 12/14/18 04:25 ALT 33 U/L (9-52) 12/14/18 04:25 Alkaline Phosphatase 83 U/L (38-126) 12/14/18 04:25 Troponin I < 0.0120 ng/mL (0.00-0.120) 12/12/18 11:03 Total Protein 6.0 G/DL (6.3-8.2) L 12/14/18 04:25 Albumin 3.1 g/dL (3.5-5.0) L 12/14/18 04:25 Globulin 2.9 gm/dL (2.2-3.9) 12/14/18 04:25 Albumin/Globulin Ratio 1.1 (1.0-2.1) 12/14/18 04:25 Triglycerides 109 mg/DL (0-149) 12/14/18 04:25 Cholesterol 131 mg/dL (0-199) 12/14/18 04:25 LDL Cholesterol Direct 91 mg/dL (0-129) 12/14/18 04:25 HDL Cholesterol 21 MG/DL (30-70) L 12/14/18 04:25 TSH 3rd Generation 1.10 mIU/ML (0.46-4.68) 12/13/18 15:18 Urine Color Yellow (YELLOW) 12/12/18 11:11 Urine Clarity Slighty-cloudy (Clear) 12/12/18 11:11 Urine pH 7.0 (5.0-8.0) 12/12/18 11:11 Ur Specific [place] 1.013 (1.003-1.030) 12/12/18 11:11 Urine Protein Negative mg/dL (NEGATIVE) 12/12/18 11:11 Urine Glucose (UA) Neg mg/dL (NEGATIVE) 12/12/18 11:11 Urine Ketones Negative mg/dL (NEGATIVE) 12/12/18 11:11 Urine Blood Negative (NEGATIVE) 12/12/18 11:11 Urine Nitrate Negative (NEGATIVE) 12/12/18 11:11 Urine Bilirubin Negative (NEGATIVE) 12/12/18 11:11 Urine Urobilinogen 4.0 mg/dL (0.2-1.0) H 12/12/18 11:11 Ur Leukocyte Esterase Neg Cathy/uL (Negative) 12/12/18 11:11 Urine Microscopic WBC 1 /hpf (0-5) 12/12/18 11:11 Ur Squamous Epith Cells 1 /hpf (0-5) 12/12/18 11:11 Amorphous Sediment Occ /ul (<OCC) H 12/12/18 11:11 Blood Type O POSITIVE 12/12/18 18:26 Blood Type Confirm O POSITIVE 12/12/18 18:38 Antibody Screen Negative 12/12/18 18:26 Crossmatch See Detail 12/12/18 18:26 BBK History Checked No verified bt 12/12/18 18:26 - Hospital Course Hospital Course: 82 year old female with a past medical history of hypertension presented to ED due to headache and dizziness that started 3 days ago. P Patient was admitted for further management and evaluation of CVA ED course VItal 97.6temp , 143/79Bp 70Hr 100ox CBC/CMP wnl UA + for bacteria MRI late acute/early subacute right MCA involving the right posterior parietal lobe. Aditional small focus of acute infarction in the right posterior parietal lobe. Mild chronic microangiopathic changes and mild agre-related global parenchymal volume loss. 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 CT scan No definite occlusion or sig stenosis identified throughout CT angiography of the head and neck. Hypoplastic Right A1 TONNY with widely patent left A1 and bilateral A2 TONNY segments as well as more distal branches. No definitive sig comparative arterial enhancement pattern at the right temporal parietal distributuion. No definite large vessel occlusions. B/L Thyriod lesions Left lobe 1.6 x 1.9 or possible cyst. Complex nodule right thyriod lobe 1.1 x 1.0 cm. ECHO: Borderline to mild concentric left ventricular hypertrophy. EJ 55-60%, Left atrium is severely dilated, mild aortic regurgitation, there is moderate mitral valve regurgitation. Mild tricuspid valve regurgitation noted. RVSP is 33mm HG During her stay patient was refusing all treatment, Psych was consulted and report patient is not in condition to make own decision, family notified and approve on further treatment, patient was placed on Ativan 0.5 prn agitation and CVA management was started. Patient received Plavix 300mg once then switch to Plavix 75mg, aspirin 81, Atorvastatin 40mg, oxygen via nasal [place]ola prn, PT and neuro were on the case. CT scan was done and due to reading TSH was sent which was 1.1 normal. On patient CBC, Patient H/H 7.4/23.8, type and cross was done, patient had blood transfusion (1 unit) Patient BLood pressure was treated with and controlled with lisinopril 20mg, lipid panel was sent along with HA1C Lipid panel was WNL, HA1C is positive for pre-diabetes 5.9 Patient was seen and examined at bedside today, No acute event overnight. Patient have no complains and want to be discharged home. Patient is alert and oriented, daughter on bedside. Patient denies chest pain,sob, abd pain, diarrhea, constipation, dysuria or polyuria. Patient denies any weakness, loss of balance, headache, or any other CVA symptoms. PT examined patient and no difeciency have been reported. Patient physical examination is WNL, Patient have CII-XII intact, gate is intact, and no weakness or loss of sensation in any limp. Patient chart reviewed and she is discharged home to follow up with PCP Patient sent on Plavix 75mg Aspirin 81mg Atorvastatin 40mg Ferrous sulfate Patient and family was educated about CVA symptoms and ER precaution given Patient NEED to follow up with PCP for Blood pressure control, Anemia work up and thyroid nodule. Discharge Exam - Head Exam Head Exam: ATRAUMATIC, NORMAL INSPECTION, NORMOCEPHALIC - Eye Exam Eye Exam: EOMI, Normal appearance, PERRL Pupil Exam: NORMAL ACCOMODATION, PERRL - ENT Exam ENT Exam: Normal External Ear Exam - Respiratory Exam Respiratory Exam: Clear to PA & Lateral, NORMAL BREATHING PATTERN, UNREMARKABLE - Cardiovascular Exam Cardiovascular Exam: REGULAR RHYTHM, +S1, +S2 - GI/Abdominal Exam GI & Abdominal Exam: Normal Bowel Sounds, Unremarkable - Extremities Exam Extremities exam: normal inspection - Back Exam Back exam: NORMAL INSPECTION - Neurological Exam Neurological exam: Alert, CN II-XII Intact, Normal Gait, Oriented x3, Reflexes Normal - Skin Skin Exam: Dry, Intact, Normal Color, Warm Discharge Plan - Discharge Medications Prescriptions: Atorvastatin [Lipitor] 40 mg PO DAILY #30 tab Clopidogrel Bisulfate [Plavix] 75 mg PO DAILY #30 tablet Ferrous Sulfate 325 mg PO DAILY #30 tablet Lisinopril [Prinivil] 20 mg PO DAILY #30 tablet - Follow Up Plan Condition: GOOD Disposition: HOME/ ROUTINE Instructions: High Blood Pressure (DC), Stroke (DC), Anemia of Chronic Disease (DC) Additional Instructions: follow up with primary md in 1 week Referrals: [facility] [place] [Outside]
--- NOTE | 2018-12-14 14:28 | CARD ---
APPROVED REPORT Date of service: 12/12/2018 EKG Measurement Heart [id number] <Conclusion> Sinus rhythm with premature atrial complexes Otherwise normal ECG
== END 2018-12-14 12:25 | disposition home or self-care (01) | DRG 45 ==
LOC: H.ER 09:32 → H.ERHOLD 14:21 → H.TEL 20:41
PROC: 30233N1 Transfusion of Nonautologous Red Blood Cells into Peripheral Vein, Percutaneous Approach (ICD-10-PCS; principal; 2018-12-12)
DX: I63.511 Cerebral infarction due to unspecified occlusion or stenosis of right middle cerebral artery (principal); D63.8 Anemia in other chronic diseases classified elsewhere; I10 Essential (primary) hypertension; R29.6 Repeated falls; R73.03 Prediabetes; J32.4 Chronic pansinusitis; Z79.82 Long term (current) use of aspirin; Z79.899 Other long term (current) drug therapy; I51.7 Cardiomegaly

== ENCOUNTER 2018-12-28 12:35 | Inpatient (IN) | payer MEDICAID, OTHER ==
[2018-12-28 12:36] VITALS: BMI 27.9
[2018-12-28 13:28] LABS: BASO # 0.1 K/uL (0.0-0.2); BASO % 0.9 % (0.0-2.0); EOS # 0.1 K/uL (0.0-0.7); LYMPH # 1.2 K/uL (1.0-4.3); LYMPH % 15.2 % (20.0-40.0); MEAN CELL VOLUME 71.5 fl (81.0-99.0); MEAN CORPUSCULAR HEMOGLOBIN 21.6 pg (27.0-31.0); MEAN CORPUSCULAR HGB CONC 30.2 g/dL (33.0-37.0); MEAN PLATELET VOLUME 7.3 fl (7.2-11.7); MONO # 0.7 K/uL (0.0-0.8); NEUT # 5.7 K/uL (1.8-7.0); NEUT % 73.9 % (50.0-75.0); NRBC % 0.5 % (0.0-0.0); RBC 2.57 Mil/uL (3.80-5.20); RED CELL DISTRIBUTION WIDTH 27.7 % (11.5-14.5); WHITE BLOOD COUNT 7.7 K/uL (4.8-10.8)
[2018-12-28 13:32] LABS: HEMOGLOBIN 5.6 g/dL (12.0-16.0)
[2018-12-28 13:53] LABS: ALT/SGPT 26 U/L (9-52); AST/SGOT 58 U/L (14-36); BLOOD UREA NITROGEN 9 mg/dl (7-17); CALCIUM 7.9 mg/dL (8.4-10.2); GFR NON-AFRICAN AMERICAN > 60
[2018-12-28 13:56] LABS: INR 1.1; PROTHROMBIN TIME 12.9 Seconds (9.8-13.1)
[2018-12-28 13:58] LABS: PARTIAL THROMBOPLASTIN TIME 27.9 Seconds (25.6-37.1)
--- NOTE | 2018-12-28 14:05 | ED PDOC ---
HPI: Abdomen Time Seen by Provider: 12/28/18 12:58 Chief Complaint (Nursing): GI Problem Chief Complaint (Provider): GI Problem History Per: Patient History/Exam Limitations: no limitations Onset/Duration Of Symptoms: Other (1 month) Additional Complaint(s): 82 y/o female presents to the ED complaining for Low blood pressure, syncope, black stool, and anemia for 1 month. She also reports she had intermittent chest pain throughout the month. Patient states she went to the clinic today and was told to go to the ER because she had syncope episodes, known to have anemia, and suspicious GI bleed. She reports she had passed out 1 time last month and 2 almost syncope but did feel weakness. Patient has a history of maravilla. Patient denies any vomiting. PMD: NONE PROVIDED Past Medical History Reviewed: Historical Data, Nursing Documentation, Vital Signs Vital Signs: Last Vital Signs Temp 98.5 F 12/28/18 12:42 Pulse 79 12/28/18 12:42 Resp 18 12/28/18 12:42 BP 117/58 L 12/28/18 12:42 Pulse Ox 100 12/28/18 12:42 - Medical History PMH: CVA, HTN Denies: Chronic Kidney Disease - Surgical History Surgical History: No Surg Hx - Family History Family History: States: Unknown Family Hx - Immunization History Hx Tetanus Toxoid Vaccination: No Hx Influenza Vaccination: No Hx Pneumococcal Vaccination: No - Home Medications Home Medications: Ambulatory Orders Medication Instructions Recorded Clopidogrel Bisulfate [Plavix] 75 mg PO DAILY #30 tablet 12/14/18 Ferrous Sulfate 325 mg PO DAILY #30 tablet 12/14/18 Lisinopril [Prinivil] 20 mg PO DAILY #30 tablet 12/14/18 Aspirin [Aspirin Chewable] 81 mg PO HS 12/28/18 Atorvastatin [Lipitor] 40 mg PO HS 12/28/18 - Allergies Allergies/Adverse Reactions: Allergies Allergy/AdvReac Type Severity Reaction Status Date / Time No Known Allergies Allergy Verified 12/28/18 12:42 Review of Systems ROS Statement: Except As Marked, All Systems Reviewed And Found Negative Constitutional: Positive for: Weakness Cardiovascular: Positive for: Chest Pain (intermittent) Gastrointestinal: Positive for: Melena. Negative for: Vomiting Neurological: Positive for: Other (SYNCOPE) Physical Exam - Reviewed Nursing Documentation Reviewed: Yes Vital Signs Reviewed: Yes - Physical Exam Appears: Positive for: Well, Non-toxic, No Acute Distress Head Exam: Positive for: ATRAUMATIC, NORMOCEPHALIC Skin: Positive for: Normal Color, Warm, Dry Eye Exam: Positive for: Normal appearance, EOMI, PERRL, Conjunctival injection ENT: Positive for: Normal ENT Inspection Neck: Positive for: Normal, Painless ROM, Supple Cardiovascular/Chest: Positive for: Regular Rate, Rhythm. Negative for: Murmur Respiratory: Positive for: Normal Breath Sounds. Negative for: Respiratory Distress Gastrointestinal/Abdominal: Positive for: Normal Exam, Soft. Negative for: Tenderness Back: Positive for: Normal Inspection. Negative for: L CVA Tenderness, R CVA Tenderness Rectal: Positive for: Normal Exam, Black Stool (small amount), Other (No bleeding. 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 Negative for: Mass Extremity: Positive for: Normal ROM Neurological/Psych: Positive for: Awake, Alert, Normal Tone, Oriented (x3). Negative for: Motor/Sensory Deficits - Laboratory Results Result Diagrams: 12/30/18 05:24 12/29/18 09:00 Lab Results: PT 12.9 Seconds (9.8-13.1) 12/28/18 13:15 INR 1.1 12/28/18 13:15 APTT 27.9 Seconds (25.6-37.1) 12/28/18 13:15 Total Bilirubin 0.4 mg/dl (0.2-1.3) 12/28/18 13:15 AST 58 U/L (14-36) H D 12/28/18 13:15 ALT 26 U/L (9-52) 12/28/18 13:15 Alkaline Phosphatase 108 U/L (38-126) 12/28/18 13:15 Total Protein 5.9 G/DL (6.3-8.2) L 12/28/18 13:15 Albumin 3.0 g/dL (3.5-5.0) L 12/28/18 13:15 Globulin 2.9 gm/dL (2.2-3.9) 12/28/18 13:15 Albumin/Globulin Ratio 1.0 (1.0-2.1) 12/28/18 13:15 - ECG O2 Sat by Pulse Oximetry: 100 Medical Decision Making Medical Decision Making: Time:1306 Initial Impression: Anemia, syncope, and black stool Differential Diagnosis: GI bleed, anemia, cardiac arrhythmia Initial Plan: -Crossmatch -Type and screen -CT -EKG -CMP -Troponin -Gastroenterology consult -Urine dipstick -CBC -PTT -Prothrombin -Protonix inj -Administer Blood -Admit to hospital 17:00 PROCEDURE: CT HEAD WITHOUT CONTRAST. HISTORY: syncope COMPARISON: 12/12/2018 TECHNIQUE: Axial computed tomography images were obtained through the head/brain without intravenous contrast. Radiation dose: Total exam DLP = 720.88 mGy-cm. This CT exam was performed using one or more of the following dose reduction techniques: Automated exposure control, adjustment of the mA and/or kV according to patient size, and/or use of iterative reconstruction technique. FINDINGS: HEMORRHAGE: No intracranial hemorrhage. BRAIN: Subacute right MCA territory infarct involving the parietal and posterior te mporal lobes. No evidence of acute infarct. Mild chronic white matter ischemic change. VENTRICLES: Unremarkable. No hydrocephalus. CALVARIUM: Unremarkable. PARANASAL SINUSES: Chronic pansinusitis MASTOID AIR CELLS: Unremarkable as visualized. No inflammatory changes. OTHER FINDINGS: None. IMPRESSION: Subacute right MCA territory infarct without evidence of hemorrhage. Chronic pansinusitis. 17:22 PROCEDURE: CT Abdomen and Pelvis with contrast HISTORY: GI bleed COMPARISON: None. TECHNIQUE: Contrast dose: 85 mL Omnipaque 300 Radiation dose: Total exam DLP = 249.43 mGy-cm. This CT exam was performed using one or more of the following dose reduction techniques: Automated exposure control, adjustment of the mA and/or kV according to patient size, and/or use of iterative reconstruction technique. FINDINGS: LOWER THORAX: Cardiomegaly. No infiltrate or effusion. Small hiatal hernia. LIVER: Unremarkable. No gross lesion or ductal dilatation. GALLBLADDER AND BILE DUCTS: Unremarkable. PANCREAS: Unremarkable. No gross lesion or ductal dilatation. SPLEEN: Unremarkable. ADRENALS: Unremarkable. No mass. KIDNEYS AND URETERS: Unremarkable. No hydronephrosis. No solid mass. VASCULATURE: Unremarkable. No aortic aneurysm. No aortic atherosclerotic calcification or mural plaque present. BOWEL: There is mural thickening seen in 2nd portion of the duodenum. Nonspecific. This may reflect localized inflammation such as duodenitis or rajeev duodenal ulcer but the possibility of neoplasm must also be considered. There is no evidence of duodenal perforation. There are a few Katrin duodenal lymph nodes identified on series 3, image 73 and 74. Further evaluation with endoscopy should be considered no other abnormal bowel loops. No bowel obstruction. APPENDIX: Not identified. PERITONEUM: Left inguinal hernia containing only mesenteric fat. No ascites. LYMPH NODES: No retroperitoneal or pelvic lymphadenopathy. BLADDER: Bladder is displaced towards the right side by a an enlarged multi fibroid uterus. REPRODUCTIVE: Globular markedly enlarged uterus containing coarse calcifications. Consistent with multi fibroid uterus. BONES: No acute fracture. OTHER FINDINGS: None. IMPRESSION: Localized mural thickening of the 2nd duodenum. Localized inflammation or peptic ulcer disease versus neoplasm. Few small periduodenal lymph nodes. Nonspecific. Consider further evaluation with endoscopy. [address] Peguero who will be on consult and agrees with ED management at this time. Patient has sever anemia and signs of GI bleed. Patient warrants admission for hemodynamic monitoring, resuscitation, blood transfusion, and GI work up. Scribe Attestation: Documented by Anna Samano, acting as a scribe for Ben Keita Provider Scribe Attestation: All medical record entries made by the Scribe were at my direction and personally dictated by me. I have reviewed the chart and agree that the record accurately reflects my personal performance of the history, physical exam, medical decision making, and the department course for this patient. I have also personally directed, reviewed, and agree with the discharge instructions and disposition. Disposition - Clinical Impression Clinical Impression: Gastrointestinal hemorrhage, Severe anemia - Patient ED Disposition Is Patient to be Admitted: Yes Discussed With : Cynthia Weiss Doctor Will See Patient In The: ED Counseled Patient/Family Regarding: Studies Performed, Diagnosis - Disposition Disposition Time: 13:30 Condition: FAIR - Pt Status Changed To: Hospital Disposition Of: Inpatient - Admit Certification Admit to Inpatient:: After my assessment, the patient will require hospitalization for at least two midnights. This is because of the severity of symptoms shown, intensity of services needed, and/or the medical risk in this patient being treated as an outpatient. - POA Present On Arrival: None
--- NOTE | 2018-12-28 14:27 | CP.PCM.HP ---
<SanjeevMonica - Last Filed: 12/28/18 16:23> History of Present Illness - History of Present Illness History of Present Illness: Patient was seen and examined with Dr. Strange -Hx obtained from patient, her daughter, and previous visits Patient recently discharged from [facility] 12/12/2018 after being admitted for evaluation of dizziness, headache and fall. Head CT showed large wedge shaped right MCA acute vs subacute stroke Patient was admitted to telemetry for monitoring, neuro was consulted, pt was started on aspirin, plavix & statin. MRI confirmed right mCA stroke. CTA head-neg for stenosis, tele monitoring was neg for arrhythmia & echo showed no PFO or thrombus. Hgb at that time was 7.4 and she was transfused 1 prbc with discharge instructions to cont asp, plavix, statin & ferrous sulfate 82 y/o F was brought to ED for evaluation of syncope. As per daughter, patient was at [employer], and after standing from a seated position she began to feel lightheaded and dizziness. Patient & daughter were uncertain if patient loss consciousness. Pt had a similar episode recently (see above). Pt reports being helped back into the chair by [employer] members. She reports some shortness of breath during the episode, but denied any hx of heart problems, chest pain at rest/or on exertion, hx of seizure. PMH: CVA, HTN Meds: not on any meds Allergies: denies Surhx: Sochx: x-social drinker, denies tobacco or etOH use Famhx: denies ROS: 12 points reviewed and are neg unless otherwise mentioned in HPI ED course: VS: 98.5F spo2-100% on room air, RR-18, p- 79bpm Interventions: protonix 40mg IVP given, Abd CT ordered, & 2 prbc Present on Admission - Present on Admission Any Indicators Present on Admission: No Past Patient History - Past Medical History & Family History Past Medical History?: Yes - Past Social History Smoking Status: Never Smoked - CARDIAC Hx Hypertension: Yes - PULMONARY Hx Respiratory Disorders: No - NEUROLOGICAL Hx Neurological Disorder: No - HEENT Hx HEENT Problems: No - RENAL Hx Chronic Kidney Disease: No - ENDOCRINE/METABOLIC Hx Endocrine Disorders: No - HEMATOLOGICAL/ONCOLOGICAL Hx Blood Disorders: No - INTEGUMENTARY Hx Dermatological Problems: No - MUSCULOSKELETAL/RHEUMATOLOGICAL Hx Musculoskeletal Disorders: No Hx Falls: No - GASTROINTESTINAL Hx Gastrointestinal Disorders: No - GENITOURINARY/GYNECOLOGICAL Hx Genitourinary Disorders: No - PSYCHIATRIC Hx Psychophysiologic Disorder: No Hx Substance Use: No - SURGICAL HISTORY Hx Surgeries: Yes Other/Comment: Foot surgery - ANESTHESIA Hx Anesthesia: Yes Hx Anesthesia Reactions: No Hx Malignant Hyperthermia: No Meds Allergies/Adverse Reactions: Allergies Allergy/AdvReac Type Severity Reaction Status Date / Time No Known Allergies Allergy Verified 12/28/18 12:42 Physical Exam - Constitutional Appears: Non-toxic Additional comments: Labored breathing - Head Exam Head Exam: ATRAUMATIC - Eye Exam Pupil Exam: PERRL - ENT Exam ENT Exam: Mucous Membranes Dry - Neck Exam Neck exam: Positive for: Full Rom - Respiratory Exam Respiratory Exam: Clear to Auscultation Bilateral - Cardiovascular Exam Cardiovascular Exam: REGULAR RHYTHM, +S1, +S2 - GI/Abdominal Exam GI & Abdominal Exam: Normal Bowel Sounds, Soft. absent: Guarding, Rigid, Tenderness - Extremities Exam Extremities exam: Negative for: calf tenderness - Back Exam Back exam: NORMAL INSPECTION - Neurological Exam Neurological exam: Alert, Oriented x3 - Skin Skin Exam: Dry - Additional Findings Additional findings: worried and anxious Results - Vital Signs Recent Vital Signs: Last Vital Signs Temp 98.5 F 12/28/18 12:42 Pulse 79 12/28/18 12:42 Resp 18 12/28/18 12:42 BP 117/58 L 12/28/18 12:42 Pulse Ox 100 12/28/18 14:16 - Labs Result Diagrams: 12/28/18 13:15 12/28/18 13:15 Labs: Laboratory Results - last 24 hr 12/28/18 12/28/18 12/28/18 13:15 13:15 13:15 WBC 7.7 RBC 2.57 L Hgb 5.6 L* D Hct 18.4 L MCV 71.5 L D MCH 21.6 L MCHC 30.2 L RDW 27.7 H Plt Count 527 H D MPV 7.3 Neut % (Auto) 73.9 Lymph % (Auto) 15.2 L Morrow % (Auto) 9.0 Eos % (Auto) 1.0 Baso % (Auto) 0.9 Neut # (Auto) 5.7 Lymph # (Auto) 1.2 Morrow # (Auto) 0.7 Eos # (Auto) 0.1 Baso # (Auto) 0.1 PT 12.9 INR 1.1 APTT 27.9 Sodium 131 L Potassium 4.2 Chloride 102 Carbon Dioxide 24 Anion Gap 9 L BUN 9 Creatinine 0.4 L Est GFR ( Amer) > 60 Est GFR (Non-Af Amer) > 60 Random Glucose 95 Calcium 7.9 L Total Bilirubin 0.4 AST 58 H D ALT 26 Alkaline Phosphatase 108 Total Protein 5.9 L Albumin 3.0 L Globulin 2.9 Albumin/Globulin Ratio 1.0 BBK History Checked 12/28/18 13:15 WBC RBC Hgb Hct MCV MCH MCHC RDW Plt Count MPV Neut % (Auto) Lymph % (Auto) Morrow % (Auto) Eos % (Auto) Baso % (Auto) Neut # (Auto) Lymph # (Auto) Morrow # (Auto) Eos # (Auto) Baso # (Auto) PT INR APTT Sodium Potassium Chloride Carbon Dioxide Anion Gap BUN Creatinine Est GFR ( Amer) Est GFR (Non-Af Amer) Random Glucose Calcium Total Bilirubin AST ALT Alkaline Phosphatase Total Protein Albumin Globulin Albumin/Globulin Ratio BBK History Checked Patient has bt Assessment & Plan - Assessment and Plan (Free Text) Assessment: 82 y/o F recently discharged from [facility] 12/12/2018 after being found to have right MCA stroke is being admitted for further evaluation of syncope. Syncope (likely due to severe microcytic anemia) -VS stable -H & H 5.6/18.4 -FU EKG Severe microcytic anemia -H & H 5.6/18.4 -Protonix given -2 prbc ordered -Venofer ordered -CBC 3 hrs after transfusion -Continue to monitor VS -FU GI consult Recent right MCA stroke -hold aspirin and plavix for now HTN -hold lisinopril DVT prophylaxis -SCD for now H & H 5.6/18.4 <Cynthia Weiss - Last Filed: 12/29/18 15:26> Results - Vital Signs Recent Vital Signs: Last Vital Signs Temp 99.0 F 12/29/18 11:54 Pulse 77 12/29/18 12:07 Resp 18 12/29/18 11:54 BP 131/79 12/29/18 12:07 Pulse Ox 97 12/29/18 12:07 - Labs Result Diagrams: 12/29/18 09:00 12/29/18 09:00 Labs: Laboratory Results - last 24 hr 12/28/18 12/28/18 12/28/18 13:15 19:11 20:53 WBC RBC Hgb Hct MCV MCH MCHC RDW Plt Count MPV Neut % (Auto) Lymph % (Auto) Morrow % (Auto) Eos % (Auto) Baso % (Auto) Neut # (Auto) Lymph # (Auto) Morrow # (Auto) Eos # (Auto) Baso # (Auto) Sodium Potassium Chloride Carbon Dioxide Anion Gap BUN Creatinine Est GFR ( Amer) Est GFR (Non-Af Amer) Random Glucose Calcium Iron TIBC % Saturation Ferritin 9.8 L Total Bilirubin AST ALT Alkaline Phosphatase Troponin I Total Protein Albumin Globulin Albumin/Globulin Ratio Stool Occult Blood Positive H Blood Type O POSITIVE Antibody Screen Negative Crossmatch See Detail BBK History Checked Patient has bt 12/28/18 12/28/18 12/29/18 20:53 22:51 09:00 WBC 7.2 RBC 3.51 L Hgb 8.4 L D Hct 27.0 L MCV 76.9 L D MCH 23.9 L MCHC 31.1 L RDW 24.6 H Plt Count 469 H MPV 7.3 Neut % (Auto) 74.4 Lymph % (Auto) 15.6 L Morrow % (Auto) 8.2 Eos % (Auto) 1.5 Baso % (Auto) 0.3 Neut # (Auto) 5.4 Lymph # (Auto) 1.1 Morrow # (Auto) 0.6 Eos # (Auto) 0.1 Baso # (Auto) 0.0 Sodium Potassium Chloride Carbon Dioxide Anion Gap BUN Creatinine Est GFR ( Amer) Est GFR (Non-Af Amer) Random Glucose Calcium Iron < 10 L TIBC 315 % Saturation 3.17 L Ferritin Total Bilirubin AST ALT Alkaline Phosphatase Troponin I < 0.0120 Total Protein Albumin Globulin Albumin/Globulin Ratio Stool Occult Blood Blood Type Antibody Screen Crossmatch BBK History Checked 12/29/18 09:00 WBC RBC Hgb Hct MCV MCH MCHC RDW Plt Count MPV Neut % (Auto) Lymph % (Auto) Morrow % (Auto) Eos % (Auto) Baso % (Auto) Neut # (Auto) Lymph # (Auto) Morrow # (Auto) Eos # (Auto) Baso # (Auto) Sodium 132 Potassium 3.6 Chloride 102 Carbon Dioxide 21 L Anion Gap 13 BUN 7 Creatinine 0.5 L Est GFR ( Amer) > 60 Est GFR (Non-Af Amer) > 60 Random Glucose 172 H Calcium 7.9 L Iron TIBC % Saturation Ferritin Total Bilirubin 0.6 AST 47 H ALT 23 Alkaline Phosphatase 97 Troponin I < 0.0120 Total Protein 5.5 L Albumin 2.7 L Globulin 2.8 Albumin/Globulin Ratio 1.0 Stool Occult Blood Blood Type Antibody Screen Crossmatch BBK History Checked Attending/Attestation - Attestation I have personally seen and examined this patient.: Yes I have fully participated in the care of the patient.: Yes I have reviewed all pertinent clinical information: Yes Notes (Text): 12/29/18 15:26 83-year-old female recently discharged for large MCA CVA was discharged on aspirin and Plavix. She complains of a one-month history of melena, she then had an episode of syncope. Patient was found to be severely anemic in ED, received 2 units of PRBC. And will be evaluated by gastroenterology. Syncope is likely secondary to hypovolemia secondary to acute blood loss anemia secondary to GI bleed, melena.
[2018-12-28] MEDS ORDERED: Sodium Chloride 0.9% 50 ML IV ONE (16:38)
[2018-12-28] MEDS ORDERED: Iohexol 300 100 ML IJ ONE (16:38)
--- NOTE | 2018-12-28 17:04 | CT ---
Date of service: 12/28/2018 PROCEDURE: CT HEAD WITHOUT CONTRAST. HISTORY: syncope COMPARISON: 12/12/2018 TECHNIQUE: Axial computed tomography images were obtained through the head/brain without intravenous contrast. Radiation dose: Total exam DLP = 720.88 mGy-cm. This CT exam was performed using one or more of the following dose reduction techniques: Automated exposure control, adjustment of the mA and/or kV according to patient size, and/or use of iterative reconstruction technique. FINDINGS: HEMORRHAGE: No intracranial hemorrhage. BRAIN: Subacute right MCA territory infarct involving the parietal and posterior temporal lobes. No evidence of acute infarct. Mild chronic white matter ischemic change. VENTRICLES: Unremarkable. No hydrocephalus. CALVARIUM: Unremarkable. PARANASAL SINUSES: Chronic pansinusitis MASTOID AIR CELLS: Unremarkable as visualized. No inflammatory changes. OTHER FINDINGS: None. IMPRESSION: Subacute right MCA territory infarct without evidence of hemorrhage. Chronic pansinusitis.
--- NOTE | 2018-12-28 17:26 | CT ---
Date of service: 12/28/2018 PROCEDURE: CT Abdomen and Pelvis with contrast HISTORY: GI bleed COMPARISON: None. TECHNIQUE: Contrast dose: 85 mL Omnipaque 300 Radiation dose: Total exam DLP = 249.43 mGy-cm. This CT exam was performed using one or more of the following dose reduction techniques: Automated exposure control, adjustment of the mA and/or kV according to patient size, and/or use of iterative reconstruction technique. FINDINGS: LOWER THORAX: Cardiomegaly. No infiltrate or effusion. Small hiatal hernia. LIVER: Unremarkable. No gross lesion or ductal dilatation. GALLBLADDER AND BILE DUCTS: Unremarkable. PANCREAS: Unremarkable. No gross lesion or ductal dilatation. SPLEEN: Unremarkable. ADRENALS: Unremarkable. No mass. KIDNEYS AND URETERS: Unremarkable. No hydronephrosis. No solid mass. VASCULATURE: Unremarkable. No aortic aneurysm. No aortic atherosclerotic calcification or mural plaque present. BOWEL: There is mural thickening seen in 2nd portion of the duodenum. Nonspecific. This may reflect localized inflammation such as duodenitis or rajeev duodenal ulcer but the possibility of neoplasm must also be considered. There is no evidence of duodenal perforation. There are a few Katrin duodenal lymph nodes identified on series 3, image 73 and 74. Further evaluation with endoscopy should be considered no other abnormal bowel loops. No bowel obstruction. APPENDIX: Not identified. PERITONEUM: Left inguinal hernia containing only mesenteric fat. No ascites. LYMPH NODES: No retroperitoneal or pelvic lymphadenopathy. BLADDER: Bladder is displaced towards the right side by a an enlarged multi fibroid uterus. REPRODUCTIVE: Globular markedly enlarged uterus containing coarse calcifications. Consistent with multi fibroid uterus. BONES: No acute fracture. OTHER FINDINGS: None. IMPRESSION: Localized mural thickening of the 2nd duodenum. Localized inflammation or peptic ulcer disease versus neoplasm. Few small periduodenal lymph nodes. Nonspecific. Consider further evaluation with endoscopy.
[2018-12-28 21:48] LABS: IRON < 10 ug/dL (37-170)
[2018-12-28 21:54] LABS: TOTAL IRON BINDING CAPACITY 315 ug/dL (250-450)
[2018-12-28 21:55] LABS: % IRON SATURATION 3.17 % (20-55)
[2018-12-29] MEDS ORDERED: Pantoprazole 40 mg EC Tab PO SCH (09:00)
[2018-12-29 09:56] LABS: BASO % 0.3 % (0.0-2.0); EOS # 0.1 K/uL (0.0-0.7); EOS % 1.5 % (0.0-4.0); HEMOGLOBIN 8.4 g/dL (12.0-16.0); LYMPH # 1.1 K/uL (1.0-4.3); LYMPH % 15.6 % (20.0-40.0); MEAN CELL VOLUME 76.9 fl (81.0-99.0); MEAN CORPUSCULAR HEMOGLOBIN 23.9 pg (27.0-31.0); MEAN CORPUSCULAR HGB CONC 31.1 g/dL (33.0-37.0); MEAN PLATELET VOLUME 7.3 fl (7.2-11.7); MONO # 0.6 K/uL (0.0-0.8); MONO % 8.2 % (0.0-10.0); NEUT # 5.4 K/uL (1.8-7.0); NEUT % 74.4 % (50.0-75.0); NRBC % 0.1 % (0.0-0.0); RBC 3.51 Mil/uL (3.80-5.20); RED CELL DISTRIBUTION WIDTH 24.6 % (11.5-14.5); WHITE BLOOD COUNT 7.2 K/uL (4.8-10.8)
[2018-12-29 10:12] LABS: ALBUMIN 2.7 g/dL (3.5-5.0); ALT/SGPT 23 U/L (9-52); AST/SGOT 47 U/L (14-36); BLOOD UREA NITROGEN 7 mg/dl (7-17); CALCIUM 7.9 mg/dL (8.4-10.2); GFR NON-AFRICAN AMERICAN > 60
--- NOTE | 2018-12-29 10:54 | CP.PCM.PN ---
<Thania Keenanpearl [place] - Last Filed: 12/29/18 11:05> Subjective - Date & Time of Evaluation Date of Evaluation: 12/29/18 Time of Evaluation: 08:30 - Subjective Subjective: Patient was seen and examined at bedside this morning. Family at bedside. S/p 2 PRBC transfused. [id number] chest pain, SOB, dizziness, headaches or other complains at this eval. Objective - Vital Signs/Intake and Output Vital Signs (last 24 hours): Temp Pulse Resp BP Pulse Ox 98.2 F 77 18 133/70 98 12/29/18 07:51 12/29/18 07:51 12/29/18 07:51 12/29/18 07:51 12/29/18 07:51 Intake and Output: 12/29/18 12/29/18 06:59 18:59 Intake Total 660 Balance 660 - Medications Medications: Current Medications Atorvastatin Calcium (Lipitor) 40 mg PO HS [facility] Ferrous Sulfate (Feosol) 325 mg PO DAILY [facility] Iron Sucrose 100 mg/ Sodium (Chloride) 105 mls @ 105 mls/hr IVPB DAILY [facility] Pantoprazole Sodium (Protonix Inj) 40 mg IVP DAILY [facility] - Labs Labs: 12/29/18 09:00 12/29/18 09:00 PT 12.9 Seconds (9.8-13.1) 12/28/18 13:15 INR 1.1 12/28/18 13:15 APTT 27.9 Seconds (25.6-37.1) 12/28/18 13:15 - Constitutional Appears: Non-toxic, No Acute Distress - Eye Exam Eye Exam: Normal appearance - ENT Exam ENT Exam: Mucous Membranes Moist - Respiratory Exam Respiratory Exam: Clear to Ausculation Bilateral, NORMAL BREATHING PATTERN. absent: Rales, Rhonchi, Wheezes, Respiratory Distress, Stridor - Cardiovascular Exam Cardiovascular Exam: REGULAR RHYTHM, +S1, +S2 - GI/Abdominal Exam GI & Abdominal Exam: Soft, Normal Bowel Sounds. absent: Firm, Guarding, Rigid, Tenderness - Extremities Exam Extremities Exam: Normal Inspection. absent: Calf Tenderness, Pedal Edema - Back Exam Back Exam: NORMAL INSPECTION. 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 S/p 2 units of PRBC. Plan: Pre-syncope (likely due to severe microcytic anemia) -VS stable -H & H 5.6/18.4 on admission -troponin I x 3 negative -Head CT reported as subacute right MCA territory infarct w/o evidence of hemorrhage (recent admission due to Recent right MCA stroke) Severe microcytic anemia -H & H 5.6/18.4 on admission -on Protonix 40 mg QD -will repeat CBC in 6 hours from last CBC, if stable and cleared by GI could be DC home with outpatient f/u. -s/p 2 prbc -on Venofer daily -will start FF -CBC 3 hrs after transfusion showed improvved H/H: 8./ -Continue to monitor VS -patient will need EGD and Colonoscopy -pending GI consult, recs are appreciated Recent right MCA stroke -hold aspirin and plavix for now due to GI bleeding -c/w statin HTN -hold home lisinopril on admission due to low BP -continue on hold due to normal BP DVT prophylaxis -SCD for now due to GI bleeding <Cynthia Weiss - Last Filed: 12/29/18 14:56> Objective - Vital Signs/Intake and Output Vital Signs (last 24 hours): Temp Pulse Resp BP Pulse Ox 99.0 F 77 18 131/79 97 12/29/18 11:54 12/29/18 12:07 12/29/18 11:54 12/29/18 12:07 12/29/18 12:07 Intake and Output: 12/29/18 12/29/18 06:59 18:59 Intake Total 660 Balance 660 - Medications Medications: Current Medications Atorvastatin Calcium (Lipitor) 40 mg PO DAILY [facility] Last Admin: 12/29/18 11:37 Dose: 40 mg Ferrous Sulfate (Feosol) 325 mg PO DAILY [facility] Last Admin: 12/29/18 11:29 Dose: 325 mg Iron Sucrose 100 mg/ Sodium (Chloride) 105 mls @ 105 mls/hr IVPB DAILY [facility] Last Admin: 12/29/18 11:26 Dose: 105 mls/hr Pantoprazole Sodium (Protonix Inj) 40 mg IVP DAILY [facility] Last Admin: 12/29/18 11:27 Dose: 40 mg - Labs Labs: 12/29/18 09:00 12/29/18 09:00 PT 12.9 Seconds (9.8-13.1) 12/28/18 13:15 INR 1.1 12/28/18 13:15 APTT 27.9 Seconds (25.6-37.1) 12/28/18 13:15 Attending/Attestation - Attestation I have personally seen and examined this patient.: Yes I have fully participated in the care of the patient.: Yes I have reviewed all pertinent clinical information, including history, physical exam and plan: Yes Notes (Text): 12/29/18 14:55 This is an 83-year-old female recently discharged from the hospital for a large MCA CVA, placed on aspirin and Plavix and discharged home. Patient returns with severe anemia secondary to slow GI bleed over the course of a month. Patient was transfused 2 units and responded well. Patient to be evaluated by gastroenterology, we will trend CBC to monitor H&H.
--- NOTE | 2018-12-29 16:07 | CP.PCM.PCO ---
<Cici Keenan - Last Filed: 12/29/18 15:59> Physician Communication Note - Physician Communication Note Physician Communication Note: Discussed with patient and family this morning the risk and benefits Progress Note - Review of Symptoms Events since last encounter: of the use of antiplatelet therapy for secondary stroke prevention. Patient and family verbalized understanding benefits of stroke prevention and risk of bleeding while in antiplatelet therapy. Patient and family agreed to continue just one of the two antiplatelet that she was taking (aspirin and plavix) and statin for secondary stroke prevention. They understanding risk of bleeding. Also patient and her family verbalized understanding that patient will need possibly EGD and Colonoscopy to r/o other conditions such as Peptic ulcer, and malignancy. If EGD and Colonoscopy are not done on admission after GI eval, she will need to get the tests done as outpatient. <Cynthia Weiss - Last Filed: 12/29/18 16:09> Attending/Attestation - Attestation I have personally seen and examined this patient.: Yes I have fully participated in the care of the patient.: Yes I have reviewed all pertinent clinical information: Yes Notes (Text): 12/29/18 16:09 This document is to serve as a brief progress note regarding antiplatelet therapy for this patient. The patient family was advised of the risks and benefits of continuation of this therapy given her history of large CVA MCA distribution with a risk of bleed both in the brain as well as in the gastrointestinal system. Patient family exposes understanding and wishes to continue aspirin but not Plavix.
[2018-12-29 18:14] LABS: BASO % 0.3 % (0.0-2.0); EOS # 0.1 K/uL (0.0-0.7); EOS % 1.3 % (0.0-4.0); HEMOGLOBIN 8.7 g/dL (12.0-16.0); LYMPH # 1.1 K/uL (1.0-4.3); LYMPH % 15.4 % (20.0-40.0); MEAN CELL VOLUME 75.7 fl (81.0-99.0); MEAN CORPUSCULAR HEMOGLOBIN 24.1 pg (27.0-31.0); MEAN CORPUSCULAR HGB CONC 31.8 g/dL (33.0-37.0); MEAN PLATELET VOLUME 7.3 fl (7.2-11.7); MONO # 0.9 K/uL (0.0-0.8); MONO % 11.5 % (0.0-10.0); NEUT # 5.3 K/uL (1.8-7.0); NEUT % 71.5 % (50.0-75.0); NRBC % 0.2 % (0.0-0.0); RBC 3.59 Mil/uL (3.80-5.20); RED CELL DISTRIBUTION WIDTH 24.7 % (11.5-14.5); WHITE BLOOD COUNT 7.5 K/uL (4.8-10.8)
--- NOTE | 2018-12-29 23:51 | CP.PCM.CON ---
History of Present Illness - History of Present Illness History of Present Illness: 83 yo female with recent CVA for which she's been taking plavix/ASA admitted with weakness and severe anemia. Found to have Hgb under 6.Has been transfused and now feeling stronger. Review of Systems - Constitutional Constitutional: absent: Chills - EENT Eyes: absent: Blurred Vision Ears: absent: Ear Discharge Nose/Mouth/Throat: absent: Epistaxis - Cardiovascular Cardiovascular: absent: Chest Pain - Respiratory Respiratory: absent: Dyspnea - Gastrointestinal Gastrointestinal: absent: Abdominal Pain Past Patient History - Past Medical History & Family History Past Medical History?: Yes - Past Social History Smoking Status: Never Smoked - CARDIAC Hx Cardiac Disorders: Yes Hx Hypertension: Yes - PULMONARY Hx Respiratory Disorders: No - NEUROLOGICAL Hx Neurological Disorder: Yes HX Cerebrovascular Accident: Yes - HEENT Hx HEENT Problems: No - RENAL Hx Chronic Kidney Disease: No - ENDOCRINE/METABOLIC Hx Endocrine Disorders: No - HEMATOLOGICAL/ONCOLOGICAL Hx Blood Disorders: No - INTEGUMENTARY Hx Dermatological Problems: No - MUSCULOSKELETAL/RHEUMATOLOGICAL Hx Musculoskeletal Disorders: No Hx Falls: No - GASTROINTESTINAL Hx Gastrointestinal Disorders: No - GENITOURINARY/GYNECOLOGICAL Hx Genitourinary Disorders: No - PSYCHIATRIC Hx Psychophysiologic Disorder: No Hx Substance Use: No - SURGICAL HISTORY Hx Surgeries: Yes Hx Section: Yes Other/Comment: Foot surgery - ANESTHESIA Hx Anesthesia: Yes Hx Anesthesia Reactions: No Hx Malignant Hyperthermia: No Meds Allergies/Adverse Reactions: Allergies Allergy/AdvReac Type Severity Reaction Status Date / Time No Known Allergies Allergy Verified 12/28/18 12:42 - Medications Medications: Current Medications Atorvastatin Calcium (Lipitor) 40 mg PO DAILY [facility] Last Admin: 12/29/18 11:37 Dose: 40 mg Ferrous Sulfate (Feosol) 325 mg PO DAILY [facility] Last Admin: 12/29/18 11:29 Dose: 325 mg Iron Sucrose 100 mg/ Sodium (Chloride) 105 mls @ 105 mls/hr IVPB DAILY [facility] Last Admin: 12/29/18 11:26 Dose: 105 mls/hr Pantoprazole Sodium (Protonix Ec Tab) 40 mg PO DAILY [facility] Physical Exam - Constitutional Appears: No Acute Distress - Head Exam Head Exam: ATRAUMATIC - Eye Exam Eye Exam: Normal appearance - ENT Exam ENT Exam: Mucous Membranes Moist - Neck Exam Neck exam: Positive for: Normal Inspection - Respiratory Exam Respiratory Exam: Clear to Auscultation Bilateral - Cardiovascular Exam Cardiovascular Exam: REGULAR RHYTHM, +S1, +S2 - GI/Abdominal Exam GI & Abdominal Exam: Normal Bowel Sounds, Soft. absent: Tenderness Results - Vital Signs Recent Vital Signs: Last Vital Signs Temp 97.4 F L 12/29/18 19:48 Pulse 75 12/29/18 19:48 Resp 20 12/29/18 19:48 BP 134/73 12/29/18 19:48 Pulse Ox 98 12/29/18 19:48 - Labs Result Diagrams: 12/29/18 16:33 12/29/18 09:00 Labs: Laboratory Results - last 24 hr 12/28/18 12/29/18 12/29/18 13:15 09:00 09:00 WBC 7.2 RBC 3.51 L Hgb 8.4 L D Hct 27.0 L MCV 76.9 L D MCH 23.9 L MCHC 31.1 L RDW 24.6 H Plt Count 469 H MPV 7.3 Neut % (Auto) 74.4 Lymph % (Auto) 15.6 L [place] % (Auto) 8.2 Eos % (Auto) 1.5 Baso % (Auto) 0.3 Neut # (Auto) 5.4 Lymph # (Auto) 1.1 [place] # (Auto) 0.6 Eos # (Auto) 0.1 Baso # (Auto) 0.0 Sodium 132 Potassium 3.6 Chloride 102 Carbon Dioxide 21 L Anion Gap 13 BUN 7 Creatinine 0.5 L Est GFR ( Amer) > 60 Est GFR (Non-Af Amer) > 60 Random Glucose 172 H Calcium 7.9 L Total Bilirubin 0.6 AST 47 H ALT 23 Alkaline Phosphatase 97 Troponin I < 0.0120 Total Protein 5.5 L Albumin 2.7 L Globulin 2.8 Albumin/Globulin Ratio 1.0 Blood Type O POSITIVE Antibody Screen Negative Crossmatch See Detail BBK History Checked Patient has bt 12/29/18 16:33 WBC 7.5 RBC 3.59 L Hgb 8.7 L Hct 27.2 L MCV 75.7 L MCH 24.1 L MCHC 31.8 L RDW 24.7 H Plt Count 475 H MPV 7.3 Neut % (Auto) 71.5 Lymph % (Auto) 15.4 L [place] % (Auto) 11.5 H Eos % (Auto) 1.3 Baso % (Auto) 0.3 Neut # (Auto) 5.3 Lymph # (Auto) 1.1 Cam[place] # (Auto) 0.9 H Eos # (Auto) 0.1 Baso # (Auto) 0.0 Sodium Potassium Chloride Carbon Dioxide Anion Gap BUN Creatinine Est GFR ( Amer) Est GFR (Non-Af Amer) Random Glucose Calcium Total Bilirubin AST ALT Alkaline Phosphatase Troponin I Total Protein Albumin Globulin Albumin/Globulin Ratio Blood Type Antibody Screen Crossmatch BBK History Checked - Imaging and Cardiology CT scan - abdomen Status: Report reviewed by me Assessment & Plan (1) Anemia Assessment and Plan: Severe anemia after recent ASA/plavix usage. CT shows inflammatory changes in duodenum. For upper endoscopy Monday. Continue PPI. Status: Acute
[2018-12-30 06:58] LABS: BASO % 0.5 % (0.0-2.0); EOS # 0.2 K/uL (0.0-0.7); EOS % 2.5 % (0.0-4.0); HEMOGLOBIN 8.7 g/dL (12.0-16.0); LYMPH # 1.3 K/uL (1.0-4.3); LYMPH % 19.5 % (20.0-40.0); MEAN CORPUSCULAR HEMOGLOBIN 24.6 pg (27.0-31.0); MEAN CORPUSCULAR HGB CONC 32.4 g/dL (33.0-37.0); MEAN PLATELET VOLUME 7.2 fl (7.2-11.7); MONO # 0.8 K/uL (0.0-0.8); MONO % 11.8 % (0.0-10.0); NEUT # 4.4 K/uL (1.8-7.0); NEUT % 65.7 % (50.0-75.0); NRBC % 0.1 % (0.0-0.0); RBC 3.52 Mil/uL (3.80-5.20); RED CELL DISTRIBUTION WIDTH 24.5 % (11.5-14.5); WHITE BLOOD COUNT 6.7 K/uL (4.8-10.8)
--- NOTE | 2018-12-30 08:16 | CP.PCM.PN ---
<Thania Keenanpearl [place] - Last Filed: 12/30/18 12:28> Subjective - Date & Time of Evaluation Date of Evaluation: 12/30/18 Time of Evaluation: 08:15 - Subjective Subjective: Patient was seen and examined at bedside this morning. Family at bedside. No active bleeding reported overnight. H/H stable in repeat CBC x 3. S/P 2 units of PRBC. Patient has been coughing since this morning. Denies chest pain, SOB, dizziness, headaches . Last night was seen by GI, Dr. Peguero. GI plans to do EGD on Monday Objective - Vital Signs/Intake and Output Vital Signs (last 24 hours): Temp Pulse Resp BP Pulse Ox 97.8 F 68 18 137/81 98 12/30/18 07:49 12/30/18 07:49 12/30/18 07:49 12/30/18 07:49 12/30/18 07:49 - Medications Medications: Current Medications Atorvastatin Calcium (Lipitor) 40 mg PO DAILY [facility] Last Admin: 12/29/18 11:37 Dose: 40 mg Ferrous Sulfate (Feosol) 325 mg PO DAILY [facility] Last Admin: 12/29/18 11:29 Dose: 325 mg Iron Sucrose 100 mg/ Sodium (Chloride) 105 mls @ 105 mls/hr IVPB DAILY [facility] Last Admin: 12/29/18 11:26 Dose: 105 mls/hr Pantoprazole Sodium (Protonix Ec Tab) 40 mg PO DAILY [facility] - Labs Labs: 12/30/18 05:24 12/29/18 09:00 PT 12.9 Seconds (9.8-13.1) 12/28/18 13:15 INR 1.1 12/28/18 13:15 APTT 27.9 Seconds (25.6-37.1) 12/28/18 13:15 - Constitutional Appears: No Acute Distress - Eye Exam Eye Exam: Normal appearance - ENT Exam ENT Exam: Mucous Membranes Moist - Respiratory Exam Respiratory Exam: Rhonchi (diffuse and bilateral), NORMAL BREATHING PATTERN. absent: Rales, Wheezes, Respiratory Distress, Stridor - Cardiovascular Exam Cardiovascular Exam: REGULAR RHYTHM, +S1, +S2 - GI/Abdominal Exam GI & Abdominal Exam: Soft, Normal Bowel Sounds. absent: Guarding, Rigid, Tende rness, Diminished Bowel Sounds, Hypoactive Bowel Sounds - Extremities Exam Extremities Exam: Normal Inspection. absent: Calf Tenderness, Pedal Edema - Back Exam Back Exam: NORMAL INSPECTION. absent: CVA tenderness (L), CVA tenderness (R) - Neurological Exam Neurological Exam: Alert, Awake, Oriented x3 - Skin Additional comments: Constitutional Appears: Non-toxic, No Acute Distress - Eye Exam Eye Exam: Normal appearance - ENT Exam ENT Exam: Mucous Membranes Moist - Respiratory Exam Respiratory Exam: Clear to Ausculation Bilateral, NORMAL BREATHING PATTERN. absent: Rales, Rhonchi, Wheezes, Respiratory Distress, Stridor - Cardiovascular Exam Cardiovascular Exam: REGULAR RHYTHM, +S1, +S2 - GI/Abdominal Exam GI & Abdominal Exam: Soft, Normal Bowel Sounds. absent: Firm, Guarding, Rigid, Tenderness - Extremities Exam Extremities Exam: Normal Inspection. absent: Calf Tenderness, Pedal Edema - Back Exam Back Exam: NORMAL INSPECTION. absent: CVA tenderness (L), CVA tenderness (R) - Neurological Exam Neurological Exam: Awake, Oriented x3 - Psychiatric Exam Psychiatric exam: Normal Affect, Normal Mood Assessment and Plan - Assessment and Plan (Free Text) Assessment: 82 y/o F recently discharged from [facility] 12/12/2018 after being found to have right MCA stroke is being admitted for further evaluation of syncope. S/p 2 units of PRBC. Plan: Severe microcytic anemia -H & H stable : .04/13 in repeat CBC this morning -c/w Protonix 40 mg QD -on Venofer daily -c/w ferrous sulfate PO -s/p 2 prbc -iron studies showed low ferritin, % sat, and serum iron -seen by GI, plan: EHG on Monday -NPO after midnight for EGD on monday -Continue to monitor VS -patient will need EGD and Colonoscopy Cough -will send sputum culture -CXR, f/u results -start mucinex DM BID -duoneb Q6 PRN Pre-syncope (likely due to severe microcytic anemia) -VS stable -H & H stable : .04/13 in repeat CBC this morning -troponin I x 3 negative -Head CT reported as subacute right MCA territory infarct w/o evidence of hemorrhage (recent admission due to Recent right MCA stroke) Recent right MCA stroke -hold aspirin and plavix for now due to GI bleeding -c/w statin HTN -hold home lisinopril on admission due to low BP -continue on hold due to normal BP DVT prophylaxis -SCD for now due to GI bleeding <Cynthia Weiss - Last Filed: 12/30/18 14:11> Objective - Vital Signs/Intake and Output Vital Signs (last 24 hours): Temp Pulse Resp BP Pulse Ox 98.2 F 72 18 124/76 100 12/30/18 11:46 12/30/18 13:04 12/30/18 11:46 12/30/18 11:46 12/30/18 11:46 - Medications Medications: Current Medications Albuterol/Ipratropium (Duoneb 3 Mg/0.5 Mg (3 Ml) Ud) 3 ml INH RQ6 [facility] Last Admin: 12/30/18 13:03 Dose: 3 ml Atorvastatin Calcium (Lipitor) 40 mg PO DAILY [facility] Last Admin: 12/30/18 08:43 Dose: 40 mg Docusate Sodium (Colace) 200 mg PO DAILY [facility] Ferrous Sulfate (Feosol) 325 mg PO DAILY [facility] Last Admin: 12/30/18 08:43 Dose: 325 mg Guaifenesin/Dextromethorphan (Mucinex-Dm 600-30 Mg) 1 tab PO BID [facility] Last Admin: 12/30/18 11:47 Dose: 1 tab Iron Sucrose 100 mg/ Sodium (Chloride) 105 mls @ 105 mls/hr IVPB DAILY [facility] Lactated Ringer's (Lactated Ringer's) 1,000 mls @ 60 mls/hr IV .[id number] [facility] Pantoprazole Sodium (Protonix Ec Tab) 40 mg PO DAILY [facility] Last Admin: 12/30/18 08:43 Dose: 40 mg - Labs Labs: 12/30/18 05:24 12/29/18 09:00 PT 12.9 Seconds (9.8-13.1) 12/28/18 13:15 INR 1.1 12/28/18 13:15 APTT 27.9 Seconds (25.6-37.1) 12/28/18 13:15 Attending/Attestation - Attestation I have personally seen and examined this patient.: Yes I have fully participated in the care of the patient.: Yes I have reviewed all pertinent clinical information, including history, physical exam and plan: Yes Notes (Text): 12/30/18 14:11 Doing well this morning, no further episodes of bleeding. H&H is stable. Gastroenterology consult appreciated. Endoscopy planned for Monday morning. N.p.o. after midnight with maintenance fluids D5 half-normal with 20 KCl.
[2018-12-30] MEDS: Pantoprazole 40 mg EC Tab PO SCH (08:43)
[2018-12-30] MEDS ORDERED: Sodium Chloride 3% for Inhalation 4 ML VIAL.NEB IH PRN (10:07)
--- NOTE | 2018-12-30 11:00 | RAD ---
Date of service: 12/30/2018 HISTORY: cough COMPARISON: Chest radiograph dated 12/12/2018. TECHNIQUE: Chest PA and lateral views FINDINGS: LUNGS: No active pulmonary disease. PLEURA: No significant pleural effusion identified. No pneumothorax apparent. CARDIOVASCULAR: Aortic atherosclerotic calcifications. Cardiomediastinal silhouette stably enlarged. OSSEOUS STRUCTURES: Unchanged. VISUALIZED UPPER ABDOMEN: Normal. OTHER FINDINGS: None. IMPRESSION: No active disease.
[2018-12-30] MEDS: guaiFENesin-DM 600-30 mg ER Tab PO SCH ×2 (11:47→17:59)
--- NOTE | 2018-12-30 12:27 | CP.PCM.PN ---
Subjective - Date & Time of Evaluation Date of Evaluation: 12/30/18 Time of Evaluation: 12:25 - Subjective Subjective: Patient w/o complaint. No evident bleeding Objective - Vital Signs/Intake and Output Vital Signs (last 24 hours): Temp Pulse Resp BP Pulse Ox 98.2 F 69 18 124/76 100 12/30/18 11:46 12/30/18 11:46 12/30/18 11:46 12/30/18 11:46 12/30/18 11:46 - Medications Medications: Current Medications Atorvastatin Calcium (Lipitor) 40 mg PO DAILY [facility] Last Admin: 12/30/18 08:43 Dose: 40 mg Docusate Sodium (Colace) 200 mg PO DAILY [facility] Ferrous Sulfate (Feosol) 325 mg PO DAILY [facility] Last Admin: 12/30/18 08:43 Dose: 325 mg Guaifenesin/Dextromethorphan (Mucinex-Dm 600-30 Mg) 1 tab PO BID [facility] Last Admin: 12/30/18 11:47 Dose: 1 tab Iron Sucrose 100 mg/ Sodium (Chloride) 105 mls @ 105 mls/hr IVPB DAILY [facility] Lactated Ringer's (Lactated Ringer's) 1,000 mls @ 60 mls/hr IV .[id number] [facility] Pantoprazole Sodium (Protonix Ec Tab) 40 mg PO DAILY [facility] Last Admin: 12/30/18 08:43 Dose: 40 mg - Labs Labs: 12/30/18 05:24 12/29/18 09:00 PT 12.9 Seconds (9.8-13.1) 12/28/18 13:15 INR 1.1 12/28/18 13:15 APTT 27.9 Seconds (25.6-37.1) 12/28/18 13:15 - Head Exam Head Exam: ATRAUMATIC - Eye Exam Eye Exam: Normal appearance - ENT Exam ENT Exam: Normal Exam - Neck Exam Neck Exam: Normal Inspection - Cardiovascular Exam Cardiovascular Exam: +S1, +S2 - GI/Abdominal Exam GI & Abdominal Exam: Soft. absent: Tenderness Assessment and Plan (1) Anemia Assessment & Plan: no active bleeding now. Upper endoscopy Monday to r/o gastritis, ulcer, or neoplasm Status: Acute
[2018-12-30] MEDS: Albuterol-Ipratrop 3 mg / 0.5 (3 ml) UD INH SCH ×2 (13:03→19:51)
[2018-12-30] MEDS ORDERED: Lactated Ringer's 1,000 ML IV SCH (22:00)
[2018-12-31] MEDS: Albuterol-Ipratrop 3 mg / 0.5 (3 ml) UD INH SCH ×4 (01:10→13:39)
[2018-12-31 05:50] LABS: BASO % 0.5 % (0.0-2.0); EOS # 0.2 K/uL (0.0-0.7); EOS % 3.3 % (0.0-4.0); HEMOGLOBIN 8.5 g/dL (12.0-16.0); LYMPH # 1.3 K/uL (1.0-4.3); LYMPH % 19.4 % (20.0-40.0); MEAN CELL VOLUME 76.6 fl (81.0-99.0); MEAN CORPUSCULAR HEMOGLOBIN 24.2 pg (27.0-31.0); MEAN CORPUSCULAR HGB CONC 31.6 g/dL (33.0-37.0); MEAN PLATELET VOLUME 6.9 fl (7.2-11.7); MONO # 0.6 K/uL (0.0-0.8); NEUT # 4.3 K/uL (1.8-7.0); NEUT % 66.8 % (50.0-75.0); NRBC % 0.3 % (0.0-0.0); RBC 3.52 Mil/uL (3.80-5.20); RED CELL DISTRIBUTION WIDTH 24.9 % (11.5-14.5); WHITE BLOOD COUNT 6.5 K/uL (4.8-10.8)
--- NOTE | 2018-12-31 07:47 | CP.PCM.DIS ---
Provider - Provider Date of Admission: 12/28/18 13:53 Attending physician: Cynthia Weiss DO Consults: 12/28/18 13:54 Gastroenterology Consult Stat Comment: Consulting Provider: Bk Peguero Consulting Physician: Bk Peguero Reason for Consult: Lower GI bleed Hospital Course - Lab Results Lab Results: Most Recent Lab Values WBC 6.5 K/uL (4.8-10.8) 12/31/18 04:45 RBC 3.52 Mil/uL (3.80-5.20) L 12/31/18 04:45 Hgb 8.5 g/dL (12.0-16.0) L 12/31/18 04:45 Hct 27.0 % (34.0-47.0) L 12/31/18 04:45 MCV 76.6 fl (81.0-99.0) L 12/31/18 04:45 MCH 24.2 pg (27.0-31.0) L 12/31/18 04:45 MCHC 31.6 g/dL (33.0-37.0) L 12/31/18 04:45 RDW 24.9 % (11.5-14.5) H 12/31/18 04:45 Plt Count 506 K/uL (130-400) H 12/31/18 04:45 MPV 6.9 fl (7.2-11.7) L 12/31/18 04:45 Neut % (Auto) 66.8 % (50.0-75.0) 12/31/18 04:45 Lymph % (Auto) 19.4 % (20.0-40.0) L 12/31/18 04:45 Rankin % (Auto) 10.0 % (0.0-10.0) 12/31/18 04:45 Eos % (Auto) 3.3 % (0.0-4.0) 12/31/18 04:45 Baso % (Auto) 0.5 % (0.0-2.0) 12/31/18 04:45 Neut # (Auto) 4.3 K/uL (1.8-7.0) 12/31/18 04:45 Lymph # (Auto) 1.3 K/uL (1.0-4.3) 12/31/18 04:45 Rankin # (Auto) 0.6 K/uL (0.0-0.8) 12/31/18 04:45 Eos # (Auto) 0.2 K/uL (0.0-0.7) 12/31/18 04:45 Baso # (Auto) 0.0 K/uL (0.0-0.2) 12/31/18 04:45 PT 12.9 Seconds (9.8-13.1) 12/28/18 13:15 INR 1.1 12/28/18 13:15 APTT 27.9 Seconds (25.6-37.1) 12/28/18 13:15 Sodium 132 mmol/l (132-148) 12/29/18 09:00 Potassium 3.6 MMOL/L (3.6-5.0) 12/29/18 09:00 Chloride 102 mmol/L (98-107) 12/29/18 09:00 Carbon Dioxide 21 mmol/L (22-30) L 12/29/18 09:00 Anion Gap 13 (10-20) 12/29/18 09:00 BUN 7 mg/dl (7-17) 12/29/18 09:00 Creatinine 0.5 mg/dl (0.7-1.2) L 12/29/18 09:00 Est GFR ( Amer) > 60 12/29/18 09:00 Est GFR (Non-Af Amer) > 60 12/29/18 09:00 Random Glucose 172 mg/dL (65-105) H 12/29/18 09:00 Calcium 7.9 mg/dL (8.4-10.2) L 12/29/18 09:00 Iron < 10 ug/dL (37-170) L 12/28/18 20:53 TIBC 315 ug/dL (250-450) 12/28/18 20:53 % Saturation 3.17 % (20-55) L 12/28/18 20:53 Ferritin 9.8 ng/Ml (11.1-264.0) L 12/28/18 20:53 Total Bilirubin 0.6 mg/dl (0.2-1.3) 12/29/18 09:00 AST 47 U/L (14-36) H 12/29/18 09:00 ALT 23 U/L (9-52) 12/29/18 09:00 Alkaline Phosphatase 97 U/L (38-126) 12/29/18 09:00 Troponin I < 0.0120 ng/mL (0.00-0.120) 12/29/18 09:00 Total Protein 5.5 G/DL (6.3-8.2) L 12/29/18 09:00 Albumin 2.7 g/dL (3.5-5.0) L 12/29/18 09:00 Globulin 2.8 gm/dL (2.2-3.9) 12/29/18 09:00 Albumin/Globulin Ratio 1.0 (1.0-2.1) 12/29/18 09:00 Stool Occult Blood Positive (NEGATIVE) H 12/28/18 19:11 Blood Type O POSITIVE 12/28/18 13:15 Antibody Screen Negative 12/28/18 13:15 Crossmatch See Detail 12/28/18 13:15 BBK History Checked Patient has bt 12/28/18 13:15 Discharge Exam - Head Exam Head Exam: ATRAUMATIC, NORMOCEPHALIC Discharge Plan - Follow Up Plan Condition: FAIR Disposition: HOME/ ROUTINE
--- NOTE | 2018-12-31 09:20 | CARD ---
APPROVED REPORT Date of service: 12/31/2018 EKG Measurement Heart [id number] <Conclusion> Normal sinus rhythm Normal ECG
[2018-12-31] MEDS: guaiFENesin-DM 600-30 mg ER Tab PO SCH (10:40)
[2018-12-31] MEDS: Pantoprazole 40 mg EC Tab PO SCH (10:41)
[2018-12-31] MEDS ORDERED: Lactated Ringer's 500 ML IV ONE (10:59)
--- NOTE | 2018-12-31 11:31 | CP.PCM.PN ---
<Cici Keenan - Last Filed: 12/31/18 11:26> Subjective - Date & Time of Evaluation Date of Evaluation: 12/31/18 Time of Evaluation: 08:05 - Subjective Subjective: Patient seen and examined in Telemetry this morning. Patient seen alert, awake and oriented x 3. No events overnight. Her son at bedside. Patient feels well, and denies any complains at this evaluation. Patient is hemodynamically stable. H/H continues to be stable this morning. NPO after midnight for EGD this morning by GI to r/o gastritis vs Peptic ulcer vs malignancy Objective - Vital Signs/Intake and Output Vital Signs (last 24 hours): Temp Pulse Resp BP Pulse Ox 99.1 F 68 26 H 152/76 H 96 12/31/18 11:01 12/31/18 11:01 12/31/18 11:01 12/31/18 11:01 12/31/18 11:01 - Medications Medications: Current Medications Albuterol/Ipratropium (Duoneb 3 Mg/0.5 Mg (3 Ml) Ud) 3 ml INH RQ6 [facility] Last Admin: 12/31/18 08:11 Dose: 3 ml Atorvastatin Calcium (Lipitor) 40 mg PO DAILY [facility] Last Admin: 12/31/18 10:40 Dose: Not Given Docusate Sodium (Colace) 200 mg PO DAILY [facility] Last Admin: 12/31/18 10:38 Dose: Not Given Ferrous Sulfate (Feosol) 325 mg PO DAILY [facility] Last Admin: 12/31/18 10:39 Dose: Not Given Guaifenesin/Dextromethorphan (Mucinex-Dm 600-30 Mg) 1 tab PO BID [facility] Last Admin: 12/31/18 10:40 Dose: Not Given Iron Sucrose 100 mg/ Sodium (Chloride) 105 mls @ 105 mls/hr IVPB DAILY [facility] Lactated Ringer's (Lactated Ringer's) 1,000 mls @ 60 mls/hr IV .[id number] [facility] Pantoprazole Sodium (Protonix Ec Tab) 40 mg PO DAILY [facility] Last Admin: 12/31/18 10:41 Dose: Not Given - Labs Labs: 12/31/18 04:45 12/29/18 09:00 PT 12.9 Seconds (9.8-13.1) 12/28/18 13:15 INR 1.1 12/28/18 13:15 APTT 27.9 Seconds (25.6-37.1) 12/28/18 13:15 - Skin Additional comments: Constitutional Appears: No Acute Distress - Eye Exam Eye Exam: Normal appearance - ENT Exam ENT Exam: Mucous Membranes Moist - Respiratory Exam Respiratory Exam: NORMAL BREATHING PATTERN. absent: Rales, no rhonchi, Wheezes, Respiratory Distress, Stridor - Cardiovascular Exam Cardiovascular Exam: REGULAR RHYTHM, +S1, +S2 - GI/Abdominal Exam GI & Abdominal Exam: Soft, Normal Bowel Sounds. absent: Guarding, Rigid, Tenderness, Diminished Bowel Sounds, Hypoactive Bowel Sounds - Extremities Exam Extremities Exam: Normal Inspection. absent: Calf Tenderness, Pedal Edema - Back Exam Back Exam: NORMAL INSPECTION. 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 S/p 2 units of PRBC. Plan: Severe microcytic anemia -H & H stable : 8.04/13 in repeat CBC this morning -c/w Protonix 40 mg QD -on Venofer daily -c/w ferrous sulfate PO -s/p 2 prbc -iron studies showed low ferritin, % sat, and serum iron -seen by GI, plan: [facility] on Monday -NPO after midnight for EGD today -Continue to monitor VS -patient will need EGD and Colonoscopy Cough improving -sputum culture pending collection -CXR reported as no active disease -start mucinex DM BID -duoneb Q6 PRN Pre-syncope (likely due to severe microcytic anemia) -VS stable -H & H stable : 8.04/13 in repeat CBC this morning -troponin I x 3 negative -Head CT reported as subacute right MCA territory infarct w/o evidence of hemorrhage (recent admission due to Recent right MCA stroke) Recent right MCA stroke -hold aspirin and plavix for now due to GI bleeding -c/w statin HTN -resume lisinopril DVT prophylaxis -SCD for now due to GI bleeding <Cynthia Weiss - Last Filed: 01/01/19 07:37> Objective - Vital Signs/Intake and Output Vital Signs (last 24 hours): Temp Pulse Resp BP Pulse Ox 98 F 72 20 100/60 100 12/31/18 13:00 12/31/18 13:00 12/31/18 13:00 12/31/18 13:00 12/31/18 13:00 - Labs Labs: 12/31/18 04:45 12/29/18 09:00 PT 12.9 Seconds (9.8-13.1) 12/28/18 13:15 INR 1.1 12/28/18 13:15 APTT 27.9 Seconds (25.6-37.1) 12/28/18 13:15 Attending/Attestation - Attestation I have personally seen and examined this patient.: Yes I have fully participated in the care of the patient.: Yes I have reviewed all pertinent clinical information, including history, physical exam and plan: Yes Notes (Text): 01/01/19 07:36 agree with findings and plan as above.
[2018-12-31] MEDS ORDERED: Midazolam 2 MG/2 ML VIAL ONE (12:11)
[2018-12-31] MEDS ORDERED: Propofol 10 mg/ml Inj (20 ML) ONE (12:11)
[2018-12-31 12:49] VITALS: PULSE 72; O2SAT 100
--- NOTE | 2018-12-31 13:05 | CP.PCM.PN ---
Subjective - Date & Time of Evaluation Date of Evaluation: 12/31/18 Time of Evaluation: 13:02 - Subjective Subjective: Patient w/o evidence of further bleeding. Underwent upper endoscopy today. Objective - Vital Signs/Intake and Output Vital Signs (last 24 hours): Temp Pulse Resp BP Pulse Ox 99 F 72 18 118/66 100 12/31/18 12:45 12/31/18 12:45 12/31/18 12:45 12/31/18 12:45 12/31/18 12:45 Intake and Output: 12/31/18 12/31/18 06:59 18:59 Intake Total 150 Balance 150 - Medications Medications: Current Medications Albuterol/Ipratropium (Duoneb 3 Mg/0.5 Mg (3 Ml) Ud) 3 ml INH RQ6 [facility] Last Admin: 12/31/18 08:11 Dose: 3 ml Atorvastatin Calcium (Lipitor) 40 mg PO DAILY [facility] Last Admin: 12/31/18 10:40 Dose: Not Given Docusate Sodium (Colace) 200 mg PO DAILY [facility] Last Admin: 12/31/18 10:38 Dose: Not Given Ferrous Sulfate (Feosol) 325 mg PO DAILY [facility] Last Admin: 12/31/18 10:39 Dose: Not Given Guaifenesin/Dextromethorphan (Mucinex-Dm 600-30 Mg) 1 tab PO BID [facility] Last Admin: 12/31/18 10:40 Dose: Not Given Iron Sucrose 100 mg/ Sodium (Chloride) 105 mls @ 105 mls/hr IVPB DAILY [facility] Lactated Ringer's (Lactated Ringer's) 1,000 mls @ 60 mls/hr IV .[id number] [facility] Lisinopril (Zestril) 20 mg PO DAILY [facility] Pantoprazole Sodium (Protonix Ec Tab) 40 mg PO DAILY [facility] Last Admin: 12/31/18 10:41 Dose: Not Given - Labs Labs: 12/31/18 04:45 12/29/18 09:00 PT 12.9 Seconds (9.8-13.1) 12/28/18 13:15 INR 1.1 12/28/18 13:15 APTT 27.9 Seconds (25.6-37.1) 12/28/18 13:15 - Head Exam Head Exam: ATRAUMATIC - Eye Exam Eye Exam: PERRL - ENT Exam ENT Exam: Normal Exam - Neck Exam Neck Exam: Full ROM - Respiratory Exam Respiratory Exam: Clear to Ausculation Bilateral, NORMAL BREATHING PATTERN - Cardiovascular Exam Cardiovascular Exam: REGULAR RHYTHM, +S1, +S2 - GI/Abdominal Exam GI & Abdominal Exam: Normal Bowel Sounds Assessment and Plan (1) Anemia Assessment & Plan: Upper endoscopy showed prepyloric inflammatory mass. Etiology unclear. Biopsies done and are pending. Since no active bleeding seen may be discharged and followed as outpatient. Avoid antiplatelet agents and anticoagulants. Status: Acute
--- NOTE | 2018-12-31 14:07 | CP.PCM.DIS ---
<Erica Keenancarol [place] - Last Filed: 01/09/19 12:09> Provider - Provider Date of Admission: 12/28/18 13:53 Attending physician: Cynthia Weiss DO Consults: 12/28/18 13:54 Gastroenterology Consult Stat Comment: Consulting Provider: Bk Peguero Consulting Physician: Bk Peguero Reason for Consult: Lower GI bleed Time Spent in preparation of Discharge (in minutes): 30 Diagnosis - Discharge Diagnosis (1) Severe anemia Status: Acute Comment: s/p 2 units of PRBC. S/P EGD which reported an inflamamtiory mass. pending biopsy report. Patient will f/u at [facility] in 1-2 weeks. (2) Dizziness Status: Acute Comment: resolved, likely 2/2 severe anemia, acute on chronic anemia (3) Hypertension Status: Chronic Hospital Course - Lab Results Lab Results: Most Recent Lab Values WBC 6.5 K/uL (4.8-10.8) 12/31/18 04:45 RBC 3.52 Mil/uL (3.80-5.20) L 12/31/18 04:45 Hgb 8.5 g/dL (12.0-16.0) L 12/31/18 04:45 Hct 27.0 % (34.0-47.0) L 12/31/18 04:45 MCV 76.6 fl (81.0-99.0) L 12/31/18 04:45 MCH 24.2 pg (27.0-31.0) L 12/31/18 04:45 MCHC 31.6 g/dL (33.0-37.0) L 12/31/18 04:45 RDW 24.9 % (11.5-14.5) H 12/31/18 04:45 Plt Count 506 K/uL (130-400) H 12/31/18 04:45 MPV 6.9 fl (7.2-11.7) L 12/31/18 04:45 Neut % (Auto) 66.8 % (50.0-75.0) 12/31/18 04:45 Lymph % (Auto) 19.4 % (20.0-40.0) L 12/31/18 04:45 Rowan % (Auto) 10.0 % (0.0-10.0) 12/31/18 04:45 Eos % (Auto) 3.3 % (0.0-4.0) 12/31/18 04:45 Baso % (Auto) 0.5 % (0.0-2.0) 12/31/18 04:45 Neut # (Auto) 4.3 K/uL (1.8-7.0) 12/31/18 04:45 Lymph # (Auto) 1.3 K/uL (1.0-4.3) 12/31/18 04:45 Rowan # (Auto) 0.6 K/uL (0.0-0.8) 12/31/18 04:45 Eos # (Auto) 0.2 K/uL (0.0-0.7) 12/31/18 04:45 Baso # (Auto) 0.0 K/uL (0.0-0.2) 12/31/18 04:45 PT 12.9 Seconds (9.8-13.1) 12/28/18 13:15 INR 1.1 12/28/18 13:15 APTT 27.9 Seconds (25.6-37.1) 12/28/18 13:15 Sodium 132 mmol/l (132-148) 12/29/18 09:00 Potassium 3.6 MMOL/L (3.6-5.0) 12/29/18 09:00 Chloride 102 mmol/L (98-107) 12/29/18 09:00 Carbon Dioxide 21 mmol/L (22-30) L 12/29/18 09:00 Anion Gap 13 (10-20) 12/29/18 09:00 BUN 7 mg/dl (7-17) 12/29/18 09:00 Creatinine 0.5 mg/dl (0.7-1.2) L 12/29/18 09:00 Est GFR ( Amer) > 60 12/29/18 09:00 Est GFR (Non-Af Amer) > 60 12/29/18 09:00 Random Glucose 172 mg/dL (65-105) H 12/29/18 09:00 Calcium 7.9 mg/dL (8.4-10.2) L 12/29/18 09:00 Iron < 10 ug/dL (37-170) L 12/28/18 20:53 TIBC 315 ug/dL (250-450) 12/28/18 20:53 % Saturation 3.17 % (20-55) L 12/28/18 20:53 Ferritin 9.8 ng/Ml (11.1-264.0) L 12/28/18 20:53 Total Bilirubin 0.6 mg/dl (0.2-1.3) 12/29/18 09:00 AST 47 U/L (14-36) H 12/29/18 09:00 ALT 23 U/L (9-52) 12/29/18 09:00 Alkaline Phosphatase 97 U/L (38-126) 12/29/18 09:00 Troponin I < 0.0120 ng/mL (0.00-0.120) 12/29/18 09:00 Total Protein 5.5 G/DL (6.3-8.2) L 12/29/18 09:00 Albumin 2.7 g/dL (3.5-5.0) L 12/29/18 09:00 Globulin 2.8 gm/dL (2.2-3.9) 12/29/18 09:00 Albumin/Globulin Ratio 1.0 (1.0-2.1) 12/29/18 09:00 Stool Occult Blood Positive (NEGATIVE) H 12/28/18 19:11 Blood Type O POSITIVE 12/28/18 13:15 Antibody Screen Negative 12/28/18 13:15 Crossmatch See Detail 12/28/18 13:15 BBK History Checked Patient has bt 12/28/18 13:15 - Hospital Course Hospital Course: 82 y/o F recently discharged from [facility] 12/12/2018 after being found to have right MCA stroke is being admitted for further evaluation of syncope. S/p 2 units of PRBC. H/H improved after transfusion and was stable. GI was consulted to r/o GI bleeding as the etiology of severe anemia. Patient had an EGD this AM by GI. As per GI report Upper endoscopy showed prepyloric inflammatory mass. Etiology unclear. Biopsies done and are pending. Since no active bleeding seen may be discharged and followed as outpatient. Avoid antiplatelet agents and anticoagulants. However patient had a recent significant ischemic stroke. I had an extensive discussion about risk and benefits of antiplalelet therapy for stroke prevention on a setting of current GI bleeding. Caregivers verbalized understanding risk of bleeding (intracraneal and GI) if we continue antiplalelet vs benefits of stroke prevention. They prefers to continue just aspirin for now. ERE precautions given if signs of bleeding, dizziness, chest pain, tachy or other worrisome symptoms. Will DC on PPI, Iron PO, and Vitamin C c/w statin and aspirin for stroke prevention c/w lisinopril 20 - Date & Time of H&P Date of H&P: 12/28/18 Time of H&P: 14:25 Discharge Exam - Head Exam Head Exam: ATRAUMATIC - Skin Additional comments: Constitutional Appears: No Acute Distress - Eye Exam Eye Exam: Normal appearance - ENT Exam ENT Exam: Mucous Membranes Moist - Respiratory Exam Respiratory Exam: NORMAL BREATHING PATTERN. absent: Rales, no rhonchi, Wheezes, Respiratory Distress, Stridor - Cardiovascular Exam Cardiovascular Exam: REGULAR RHYTHM, +S1, +S2 - GI/Abdominal Exam GI & Abdominal Exam: Soft, Normal Bowel Sounds. absent: Guarding, Rigid, Tenderness, Diminished Bowel Sounds, Hypoactive Bowel Sounds - Extremities Exam Extremities Exam: Normal Inspection. absent: Calf Tenderness, Pedal Edema - Back Exam Back Exam: NORMAL INSPECTION. absent: CVA tenderness (L), CVA tenderness (R) - Neurological Exam Neurological Exam: Alert, Awake, Oriented x3 Discharge Plan - Discharge Medications Prescriptions: Ascorbate Calcium [Vitamin C] 500 mg PO DAILY #30 tablet Docusate [Colace] 200 mg PO DAILY PRN #30 cap PRN Reason: Constipation Ferrous Sulfate 325 mg PO DAILY #30 tablet Omeprazole 20 mg PO DAILY #30 capsule.dr - Follow Up Plan Condition: IMPROVED Disposition: HOME/ ROUTINE Patient education suggested?: Yes Instructions: Gastrointestinal Bleeding (DC), Anemia of Chronic Disease (DC) Additional Instructions: Follow up with PMD in 1-2 weeks. Follow up biopsy results with PMD at [facility] or Dr. Ryan Peguero. follow up appt in the clinic on 01/11/19 11:20am with Referrals: [facility] [Provider Group] Bk Peguero MD [Staff Provider] - <Cynthia Weiss - Last Filed: 01/11/19 21:05> Provider - Provider Date of Admission: 12/28/18 13:53 Attending physician: Cynthia Weiss DO Consults: 12/28/18 13:54 Gastroenterology Consult Stat Comment: Consulting Provider: Bk Peguero Consulting Physician: Bk Peguero Reason for Consult: Lower GI bleed Hospital Course - Lab Results Lab Results: Most Recent Lab Values WBC 6.5 K/uL (4.8-10.8) 12/31/18 04:45 RBC 3.52 Mil/uL (3.80-5.20) L 12/31/18 04:45 Hgb 8.5 g/dL (12.0-16.0) L 12/31/18 04:45 Hct 27.0 % (34.0-47.0) L 12/31/18 04:45 MCV 76.6 fl (81.0-99.0) L 12/31/18 04:45 MCH 24.2 pg (27.0-31.0) L 12/31/18 04:45 MCHC 31.6 g/dL (33.0-37.0) L 12/31/18 04:45 RDW 24.9 % (11.5-14.5) H 12/31/18 04:45 Plt Count 506 K/uL (130-400) H 12/31/18 04:45 MPV 6.9 fl (7.2-11.7) L 12/31/18 04:45 Neut % (Auto) 66.8 % (50.0-75.0) 12/31/18 04:45 Lymph % (Auto) 19.4 % (20.0-40.0) L 12/31/18 04:45 Rowan % (Auto) 10.0 % (0.0-10.0) 12/31/18 04:45 Eos % (Auto) 3.3 % (0.0-4.0) 12/31/18 04:45 Baso % (Auto) 0.5 % (0.0-2.0) 12/31/18 04:45 Neut # (Auto) 4.3 K/uL (1.8-7.0) 12/31/18 04:45 Lymph # (Auto) 1.3 K/uL (1.0-4.3) 12/31/18 04:45 Rowan # (Auto) 0.6 K/uL (0.0-0.8) 12/31/18 04:45 Eos # (Auto) 0.2 K/uL (0.0-0.7) 12/31/18 04:45 Baso # (Auto) 0.0 K/uL (0.0-0.2) 12/31/18 04:45 PT 12.9 Seconds (9.8-13.1) 12/28/18 13:15 INR 1.1 12/28/18 13:15 APTT 27.9 Seconds (25.6-37.1) 12/28/18 13:15 Sodium 132 mmol/l (132-148) 12/29/18 09:00 Potassium 3.6 MMOL/L (3.6-5.0) 12/29/18 09:00 Chloride 102 mmol/L (98-107) 12/29/18 09:00 Carbon Dioxide 21 mmol/L (22-30) L 12/29/18 09:00 Anion Gap 13 (10-20) 12/29/18 09:00 BUN 7 mg/dl (7-17) 12/29/18 09:00 Creatinine 0.5 mg/dl (0.7-1.2) L 12/29/18 09:00 Est GFR ( Amer) > 60 12/29/18 09:00 Est GFR (Non-Af Amer) > 60 12/29/18 09:00 Random Glucose 172 mg/dL (65-105) H 12/29/18 09:00 Calcium 7.9 mg/dL (8.4-10.2) L 12/29/18 09:00 Iron < 10 ug/dL (37-170) L 12/28/18 20:53 TIBC 315 ug/dL (250-450) 12/28/18 20:53 % Saturation 3.17 % (20-55) L 12/28/18 20:53 Ferritin 9.8 ng/Ml (11.1-264.0) L 12/28/18 20:53 Total Bilirubin 0.6 mg/dl (0.2-1.3) 12/29/18 09:00 AST 47 U/L (14-36) H 12/29/18 09:00 ALT 23 U/L (9-52) 12/29/18 09:00 Alkaline Phosphatase 97 U/L (38-126) 12/29/18 09:00 Troponin I < 0.0120 ng/mL (0.00-0.120) 12/29/18 09:00 Total Protein 5.5 G/DL (6.3-8.2) L 12/29/18 09:00 Albumin 2.7 g/dL (3.5-5.0) L 12/29/18 09:00 Globulin 2.8 gm/dL (2.2-3.9) 12/29/18 09:00 Albumin/Globulin Ratio 1.0 (1.0-2.1) 12/29/18 09:00 Stool Occult Blood Positive (NEGATIVE) H 12/28/18 19:11 Blood Type O POSITIVE 12/28/18 13:15 Antibody Screen Negative 12/28/18 13:15 Crossmatch See Detail 12/28/18 13:15 BBK History Checked Patient has bt 12/28/18 13:15 Attending/Attestation - Attestation I have personally seen and examined this patient.: Yes I have fully participated in the care of the patient.: Yes I have reviewed all pertinent clinical information, including history, physical exam and plan: Yes Notes (Text): agree with findings and plan as above.
[2018-12-31 16:07] VITALS: BP 100/60; RESP 20; TEMP 98
--- NOTE | 2019-01-15 14:29 | PQF ---
PROVIDER RESPONSE TEXT: -- Clinically significant, and please also state why it is clinically significant because is a possib le malignancy REVIEWER QUERY TEXT: Clinical Significance Physician?s Documentation Request This Form is Not a Permanent Document in the Medical Record Pt Name: TANYA ORELLANA MR #: [id number] Payor: [facility] Unit/Bed: [id number].[id number] Adm Date: 12/28/2018 1:53:00 PM Reviewer: Senia Malin Ext. Query Date: 01/15/2019 8:13:00 AM Clinical Significance [id number] By submitting this query, we are merely seeking further clarification of documentation to accurately reflect all conditions that you are monitoring, evaluating, treating or that extend the hospitalizati on or utilize additional resources of care. Please utilize your independent clinical judgment when ad dressing the question(s) below. 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 Clinically unable to determine/unknown Disagree with the above request Need to discuss Query created by: Senia Malin on 01/15/2019 8:13 AM Electronically signed by: Cici Strange 01/15/2019 2:26 PM
== END 2018-12-31 16:00 | disposition home or self-care (01) | DRG 240 ==
LOC: H.ER 12:35 → H.ERHOLD 13:53 → H.TEL 18:16
PROVIDERS: ADMIT Student in an Organized Health Care Education/Training Program; ATTEND Student in an Organized Health Care Education/Training Program
PROC: 30233N1 Transfusion of Nonautologous Red Blood Cells into Peripheral Vein, Percutaneous Approach (ICD-10-PCS; 2018-12-28)
PROC: 0DB78ZX Excision of Stomach, Pylorus, Via Natural or Artificial Opening Endoscopic, Diagnostic (ICD-10-PCS; 2018-12-31)
PROC: 0DB68ZX Excision of Stomach, Via Natural or Artificial Opening Endoscopic, Diagnostic (ICD-10-PCS; principal; 2018-12-31 14:45)
DX: C16.4 Malignant neoplasm of pylorus (principal); K92.2 Gastrointestinal hemorrhage, unspecified; E86.1 Hypovolemia; D62 Acute posthemorrhagic anemia; I10 Essential (primary) hypertension; K29.40 Chronic atrophic gastritis without bleeding; K31.9 Disease of stomach and duodenum, unspecified; K44.9 Diaphragmatic hernia without obstruction or gangrene; Z86.73 Personal history of transient ischemic attack (TIA), and cerebral infarction without residual deficits; Z79.02 Long term (current) use of antithrombotics/antiplatelets